=== PATIENT | male | born 1930 | race Caucasian/White ===

== ENCOUNTER → 2017-03-17 | Outpatient (CLI) | payer OTHER ==
[~2017-03-17] MED LIST: CALCTAB5 PO; CHOL100010 PO; CYAN3INJ INJ; FLM4 PO; LSN25 PO; MECL25TA2 PO; METO25TA3 PO; MULT-506 PO; OMEP20TA PO; [UNRECOGNIZED DRUG - CODE] PO
[2017-03-17 13:27] VITALS: BP 106/67; PULSE 69; TEMP 36.6; O2SAT 95
--- NOTE | 2017-03-17 15:21 | Radiation Oncology Follow-Up ---
Radiation Oncology Follow-Up Date of Visit Mar 17, 2017. Reason For Visit Annual follow-up Radiation Completion Date finished 01-28-2012 Diagnosis (1) Carcinoma of prostate Status: Resolved Onset Date: 01/26/2013 Location: right lobe of the prostate Histology Subtype: adenocarcinoma Stage: ll (biopsy stage) Permanent Comment: Gastrointestinal stromal tumor Elevated PSA. Pretreatment PSA 20.8 Clinical stage TIc, biopsy stage T2a Roddy 5+4 09/16/2011 Status post completion of radiation therapy 01/28/2012 received 8040 cGy Last Edited By: Gianna Phillips on Mar 18, 2015 16:02 Interim History He has been doing well from a urinary standpoint. He gave an AUA score of 8. He does continue on the tamsulosin once daily. Last year he gave an AUA score of 7. He completed and expanded prostate cancer index composite for clinical practice and gave a score of 4 of 12 urinary incontinence symptoms. He gave a score of one of 12 urinary irritation symptoms. He gave a score of 4 of 12 bowel symptoms. He gave a score of 8 of 12 and sexual symptoms. He gave a score of one of 12 and hormonal vitality symptoms. His total was 18 of 60. He had a PSA 03/11/2017. In that was 0.05. His PSA on 03/21/2015 was 0.13. He has been having issues with weight loss. He saw his primary care physician last week. He is noted to have a 10 pound weight loss over this past year according to our weights. His physician has recommended a dietitian consultation. He is going to begin receiving nutritional supplements from the [facility]. He has been instructed to take these twice daily. He denies any abdominal pain. He's had no change in bowel habits. He denies any rectal bleeding. Allergies Coded Allergies: No Known Allergies (Verified , 04/24/05) Home Medications Scheduled Calcium (Caltrate), 600 MG PO DAILY Cholecalciferol (Vitamin D), 1,000 INTER.UNIT PO DAILY Cyanocobalamin (Vitamin B-12 Inj), 1,000 MCG INJ UD Imatinib Mesylate (Gleevec), 400 MG PO DAILY Lisinopril (Prinivil *), 2.5 MG PO DAILY Meclizine Hcl (Antivert), 25 MG PO TID PRN Metoprolol Succ (Toprol Xl) (Toprol-Xl), 12.5 MG PO DAILY Multivitamin (Multivitamin), 1 TAB PO DAILY Omeprazole (Omeprazole), 20 MG PO QAM Tamsulosin Hcl (Flomax *), 0.4 MG PO DAILY Review of Systems Gastrointestinal: Symptoms: Nausea GI Comments: occ nausea at meal time , has been happening for last few yrs , loose stool Oral: Symptoms: No Problems Respiratory: Symptoms: WNL Other Respiratory: " getting over a head cold " Urinary: Symptoms: Nocturia Comments: nocturia times 2 - 3 , occ leakage Physical Exam Vital Signs Date Time Temp Pulse Resp B/P (MAP) Pulse Ox O2 Delivery O2 Flow Rate FiO2 03/17/17 13:27 36.6 69 16 106/67 95 Pain: Side: Bilateral Patient Pain Scale: 0 - 10 Initial Pain Intensity: 0.0 Fatigue: Mild General Appearance: no apparent distress, + thin Eyes: normal inspection, EOMI ENT: normal ENT inspection, hearing grossly normal Neck: no adenopathy, thyroid normal Respiratory/Chest: lungs clear, no respiratory distress, no accessory muscle use Cardiovascular: regular rate, rhythm, no gallop, no murmur Abdomen: normal bowel sounds, non tender, soft, + pertinent finding (scar tissue at the site of his right upper quadrant scar.) Extremities: no pedal edema Neurologic/Psychiatric: no motor/sensory deficits, alert, normal mood/affect Skin: warm/dry Assessment & Plan Plan: Continue with annual PSAs. Continue follow-up his primary care physician and Dr. Mccormick. He seen Dr. Mccormick in the next 2 weeks. He is going to start the nutritional supplements as recommended by the [facility] physician and dietitian. He'll continue follow-up with Dr. Malhotra. He continues on Gleevec. A follow-up with our office was not given. He may call if he has any questions or concerns we'll be happy to see him. Total Time In Follow-Up I spent 20 minutes speaking to the patient performing examination. I spent 15 minutes reviewing information and completing this note. Copy To Yimi Mccormick MD; Jonathan Jeter D.O.; Yimi Malhotra M.D.
== END | disposition home or self-care (01) ==
LOC: C.ONC 13:20
PROVIDERS: ATTEND Physician Assistant Medical
DX: Z08 Encounter for follow-up examination after completed treatment for malignant neoplasm (principal); Z92.3 Personal history of irradiation; Z85.46 Personal history of malignant neoplasm of prostate

== ENCOUNTER 2018-06-10 01:20 | Observation (INO) ==
[2018-06-10 01:59] LABS: Basophils # (auto) 0.05 K/uL (0-0.2); Eosinophils # (auto) 0.31 K/uL (0-0.5); Hematocrit (blood only) 35.6 % (42-52); Hemoglobin 11.6 g/dL (14.0-18.0); Immature Granulocytes # (auto) 0.01 K/uL (0.00-0.02); Immature Granulocytes % (auto) 0.2 %; Lymphocytes # (auto) 1.17 K/uL (1.2-3.4); Lymphocytes % (auto) 22.7 %; Mean Corpuscular Hgb Conc 32.6 g/dL (32-36); Mean Corpuscular Volume 103.5 fL (80-100); Mean Platelet Volume 10.4 fL (7.4-10.4); Monocytes # (auto) 0.48 K/uL (0.11-0.59); Monocytes % (auto) 9.3 %; Neutrophils # (auto) 3.13 K/uL (1.4-6.5); Neutrophils % (auto) 60.8 %; Platelet Count 252 K/uL (130-400); RDW Coefficient of Variation 17.7 % (11.5-14.5); RDW Standard Deviation 66.1 fL (36.4-46.3); Red Blood Count 3.44 M/uL (4.7-6.1); White Blood Count 5.15 K/uL (4.8-10.8)
[2018-06-10 02:15] LABS: Albumin Level 3.2 gm/dl (3.4-5.0); BUN Creatinine Ratio 32.2 (10-20); Bilirubin Direct 0.2 mg/dl (0-0.2); Calcium 8.9 mg/dl (8.5-10.1); Creatinine Clr Calc Pharmacy 30.6 ml/min; Est GFR (Non-African American) 62.1; Magnesium 2.5 mg/dl (1.8-2.4); Potassium 4.8 mmol/L (3.5-5.1)
[2018-06-10 02:30] LABS: Bilirubin,Total 0.6 mg/dl (0.2-1); Total Protein 7.3 gm/dl (6.4-8.2); Troponin I 0.15 ng/ml (0-0.045)
[2018-06-10 02:34] LABS: Appearance Urine Clear (Clear); Bilirubin Urine Negative (Negative); Color Urine Yellow; Glucose Urine UA Negative (Negative); Ketones Urine Negative (Negative); Leukocyte Esterase Urine Negative (Negative); Nitrite Urine Negative (Negative); Protein Urine Negative (Negative); Specific Gravity Urine 1.021 (1.000-1.030); Urobilinogen Urine Negative (Negative)
[2018-06-10 03:16] LABS: Partial Thromboplastin Time 27.1 Seconds (21.0-31.0)
[2018-06-10 08:11] LABS: INR 1.1 (0.9-1.1); Prothrombin Time 11.4 Seconds (9.0-12.0)
[2018-06-11 06:31] LABS: Basophils # (auto) 0.04 K/uL (0-0.2); Basophils % (auto) 1.1 %; Eosinophils # (auto) 0.24 K/uL (0-0.5); Eosinophils % (auto) 6.6 %; Hematocrit (blood only) 29.4 % (42-52); Hemoglobin 9.4 g/dL (14.0-18.0); Immature Granulocytes # (auto) 0.01 K/uL (0.00-0.02); Immature Granulocytes % (auto) 0.3 %; Lymphocytes # (auto) 0.97 K/uL (1.2-3.4); Lymphocytes % (auto) 26.6 %; Mean Corpuscular Volume 103.2 fL (80-100); Mean Platelet Volume 10.8 fL (7.4-10.4); Monocytes # (auto) 0.35 K/uL (0.11-0.59); Monocytes % (auto) 9.6 %; Neutrophils # (auto) 2.04 K/uL (1.4-6.5); Neutrophils % (auto) 55.8 %; Platelet Count 228 K/uL (130-400); RDW Coefficient of Variation 17.4 % (11.5-14.5); RDW Standard Deviation 64.8 fL (36.4-46.3); Red Blood Count 2.85 M/uL (4.7-6.1); White Blood Count 3.65 K/uL (4.8-10.8)
[2018-06-11 06:58] LABS: BUN Creatinine Ratio 30.8 (10-20); Calcium 8.3 mg/dl (8.5-10.1); Creatinine Clr Calc Pharmacy 37.3 ml/min; Est GFR (African American) 92.2; Est GFR (Non-African American) 79.5; Magnesium 2.3 mg/dl (1.8-2.4); Potassium 4.3 mmol/L (3.5-5.1)
== END 2018-06-11 14:31 | disposition home health service (06) ==
LOC: ED 01:20 → 2N 01:20

== ENCOUNTER 2018-09-28 11:20 | Inpatient (IN) ==
[2018-09-28] MEDS ORDERED: SODIUM CHLORIDE 0.9% 1000ML 500 ML IV ONE (11:27)
[2018-09-28 11:58] LABS: Basophils # (auto) 0.03 K/uL (0-0.2); Basophils % (auto) 0.2 %; Hematocrit (blood only) 35.3 % (42-52); Immature Granulocytes # (auto) 0.05 K/uL (0.00-0.02); Immature Granulocytes % (auto) 0.3 %; Lymphocytes # (auto) 0.62 K/uL (1.2-3.4); Lymphocytes % (auto) 3.8 %; Mean Corpuscular Volume 100.6 fL (80-100); Mean Platelet Volume 10.5 fL (7.4-10.4); Monocytes # (auto) 0.67 K/uL (0.11-0.59); Monocytes % (auto) 4.1 %; Neutrophils # (auto) 14.81 K/uL (1.4-6.5); Neutrophils % (auto) 91.6 %; Nucleated RBC # (auto) 0.03 K/uL (0-0); Nucleated RBC % (auto) 0.2 %; Platelet Count 278 K/uL (130-400); RDW Coefficient of Variation 16.5 % (11.5-14.5); RDW Standard Deviation 58.3 fL (36.4-46.3); Red Blood Count 3.51 M/uL (4.7-6.1); White Blood Count 16.18 K/uL (4.8-10.8)
--- NOTE | 2018-09-28 12:02 | XRay Report ---
XR chest 1V portable CLINICAL HISTORY: Sepsis COMPARISON STUDY: 06/10/2018 FINDINGS: The heart is normal in size. Underlying pulmonary emphysema is suspected. There are right p erihilar airspace opacities, which may represent a pneumonitis. Clinical and radiographic follow-up i s recommended. There is no overt failure. There are no pleural effusions.[ IMPRESSION: Interval development of right perihilar airspace opacities suspicious for a pneumonitis. Clinical and radiographic follow-up is recommended. Electronically signed by: Jamie Martel M.D. 09/28/2018 12:01 PM
[2018-09-28 12:10] LABS: INR 1.2 (0.9-1.1); Partial Thromboplastin Ratio 0.9; Partial Thromboplastin Time 24.7 Seconds (21.0-31.0); Prothrombin Time 12.4 Seconds (9.0-12.0)
[2018-09-28 12:12] LABS: Influenza A virus by PCR Neg for Influ A (Neg); Influenza B virus by PCR Neg for Influ B (Neg)
[2018-09-28 12:17] LABS: Albumin Level 3.6 gm/dl (3.4-5.0); BUN Creatinine Ratio 20.9 (10-20); Calcium 9.1 mg/dl (8.5-10.1); Creatinine Clr Calc Pharmacy 23.4 ml/min; Est GFR (African American) 56.5; Est GFR (Non-African American) 48.7; Magnesium 2.2 mg/dl (1.8-2.4); Potassium 4.3 mmol/L (3.5-5.1)
[2018-09-28 12:26] LABS: Albumin Globulin Ratio 0.9 (0.9-2); C Reactive Protein 0.35 mg/dl (0-0.29); Total Protein 7.6 gm/dl (6.4-8.2); Troponin I 0.522 ng/ml (0-0.045)
[2018-09-28] MEDS ORDERED: SODIUM CHLORIDE 0.9% 1000ML 1,000 ML IV ONE (12:59)
[2018-09-28] MEDS ORDERED: PIPERACILL/TAZOBAC CONSULT ACTIVE PRN (12:59)
[2018-09-28] MEDS ORDERED: PIPERACILLIN/TAZOBACTAM 3.375 GM/115 ML BAG IV STA (12:59)
--- NOTE | 2018-09-28 14:59 | Emergency Department Note ---
Entered by Christine Goodwin acting as a scribe for Aaron Johnston DO History of Present Illness General Chief complaint: Fever Time Seen by Provider: 09/28/18 11:23 Source: patient and other (nursing staff) Limitations: altered mental status (dementia) History of Present Illness Provider complaint: shaking Onset (ago): hour(s) (today) Location: left and right Quality: + other (shaking) Associated symptoms: + other (abdominal pain, runny nose) The patient is an 88 year old male who presents to the Emergency Department with complaints of shaking today. He states that he has had an occasional runny nose and intermittent abdominal pain. Limited HPI secondary to dementia. Per nursing staff, the patient's called as the patient was shaking. Per nursing staff, the patient has dementia. 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 Chronic anemia (Chronic) Pernicious anemia (Chronic) Right acoustic neuroma (Chronic) BPH (benign prostatic hyperplasia) (Chronic) 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 Physical Exam Vital Signs Vital Signs - 24 hr 09/28/18 11:30 09/28/18 11:35 09/28/18 11:36 Temperature Temperature Source Sepsis Recent Fever Within 48 Hours Sepsis New/Unexplained Change in Mental Status Sepsis Action Taken by Nursing Pulse Rate 101 H 99 H Pulse Rate [Right Finger] Pulse Rate from SpO2 Sensor 101 H 98 H Respiratory Rate 33 H 33 H Respiratory Effort / Characteristics Respiratory Depth Respiratory Pattern Blood Pressure 142/75 H Blood Pressure [Right Arm] Blood Pressure Mean 97 Blood Pressure Mean [Right Arm] Blood Pressure Position [Right Arm] Pulse Oximetry 95 95 95 Oxygen Delivery Method Room Air 09/28/18 11:39 09/28/18 12:00 09/28/18 12:01 Temperature 36.8 C Temperature Source Oral Sepsis Recent Fever Within 48 Hours No Sepsis New/Unexplained Change in Mental Status No Sepsis Action Taken by Nursing No Action Required Pulse Rate 119 H 92 H 93 H Pulse Rate [Right Finger] Pulse Rate from SpO2 Sensor 93 H 84 Respiratory Rate 17 28 H 26 H Respiratory Effort / Characteristics Non-Labored Spontaneous Respiratory Depth Normal Respiratory Pattern Regular Blood Pressure 139/66 122/85 Blood Pressure [Right Arm] Blood Pressure Mean 90 97 Blood Pressure Mean [Right Arm] Blood Pressure Position [Right Arm] Pulse Oximetry 95 93 Oxygen Delivery Method Room Air 09/28/18 12:02 09/28/18 12:30 09/28/18 13:00 Temperature Temperature Source Sepsis Recent Fever Within 48 Hours Sepsis New/Unexplained Change in Mental Status Sepsis Action Taken by Nursing Pulse Rate 96 H 88 87 Pulse Rate [Right Finger] Pulse Rate from SpO2 Sensor 79 89 87 Respiratory Rate 25 H 23 27 H Respiratory Effort / Characteristics Respiratory Depth Respiratory Pattern Blood Pressure 137/74 126/67 Blood Pressure [Right Arm] Blood Pressure Mean 95 86 Blood Pressure Mean [Right Arm] Blood Pressure Position [Right Arm] Pulse Oximetry 90 96 94 Oxygen Delivery Method 09/28/18 13:30 09/28/18 14:00 09/28/18 14:30 Temperature Temperature Source Sepsis Recent Fever Within 48 Hours Sepsis New/Unexplained Change in Mental Status Sepsis Action Taken by Nursing Pulse Rate 91 H 74 80 Pulse Rate [Right Finger] Pulse Rate from SpO2 Sensor 84 75 80 Respiratory Rate 26 H 27 H 28 H Respiratory Effort / Characteristics Respiratory Depth Respiratory Pattern Blood Pressure 146/76 H 128/67 113/60 Blood Pressure [Right Arm] Blood Pressure Mean 99 87 77 Blood Pressure Mean [Right Arm] Blood Pressure Position [Right Arm] Pulse Oximetry 95 94 93 Oxygen Delivery Method 09/28/18 15:00 09/28/18 15:30 09/28/18 16:00 Temperature Temperature Source Sepsis Recent Fever Within 48 Hours Sepsis New/Unexplained Change in Mental Status Sepsis Action Taken by Nursing Pulse Rate 74 74 70 Pulse Rate [Right Finger] Pulse Rate from SpO2 Sensor 75 74 70 Respiratory Rate 31 H 21 21 Respiratory Effort / Characteristics Respiratory Depth Respiratory Pattern Blood Pressure 121/59 L 106/57 L 107/55 L Blood Pressure [Right Arm] Blood Pressure Mean 79 73 72 Blood Pressure Mean [Right Arm] Blood Pressure Position [Right Arm] Pulse Oximetry 95 94 94 Oxygen Delivery Method 09/28/18 16:14 Temperature 36.6 C Temperature Source Oral Sepsis Recent Fever Within 48 Hours Sepsis New/Unexplained Change in Mental Status Sepsis Action Taken by Nursing Pulse Rate Pulse Rate [Right Finger] 70 Pulse Rate from SpO2 Sensor Respiratory Rate 18 Respiratory Effort / Characteristics Respiratory Depth Respiratory Pattern Blood Pressure Blood Pressure [Right Arm] 117/59 L Blood Pressure Mean Blood Pressure Mean [Right Arm] 78 Blood Pressure Position [Right Arm] Lying Pulse Oximetry 94 Oxygen Delivery Method Room Air GENERAL: Patient is awake, alert, and in no acute distress. Patient is resting comfortably and showing no signs of anxiety. Very cachectic appearing. EYES: The conjunctivae are clear. The pupils are round and reactive. EARS, NOSE, MOUTH AND THROAT: The nose is without any evidence of any deformity. Mucous membranes are dry. Tongue is midline NECK: The neck is nontender and supple. RESPIRATORY: Diminished in the left base. Rales noted in the right lung field. Poor air movement. CARDIOVASCULAR: Regular rate and rhythm noted. There no murmurs rubs or gallops normal S1 normal S2 GASTROINTESTINAL: The abdomen is soft. Bowel sounds are present in all quadran ts. Abdomen is nontender. MUSCULOSKELETAL/EXTREMITIES: There is no evidence of gross deformity. Full range of motion is noted in the hips and shoulders. SKIN: Cool and dry. No edema. NEUROLOGIC: Patient is awake alert and oriented to person, place, and situation. [Strength is symmetric. Patellar reflexes are 2+ bilaterally.] Course 1124: The patient was evaluated in room B9. A history and physical were performed. 1301: I updated the patient. He verbalized agreement and understanding of the treatment plan. 1324: I discussed the patient's case with Nellie Solo PA-C, admitting to Dr. Jimenez, who will evaluate the patient for further management. Consultations Consultation #1: Nellie Child Time: 13:24 Administered Medications Discontinued Medications Sodium Chloride (Nss 1000ml) 500 mls @ 999 mls/hr IV .Q31M ONE Stop: 09/28/18 11:57 Last Infusion: 09/28/18 12:21 Dose: 0 mls/hr Documented by: [id number] Admin: 09/28/18 11:50 Dose: 999 mls/hr Documented by: [id number] Piperacillin Sod/Tazobactam Sod (Zosyn) 3.375 gm in 115 mls @ 230 mls/hr IV NOW STA Stop: 09/28/18 13:28 Last Infusion: 09/28/18 13:51 Dose: 0 mls/hr Documented by: [id number] Admin: 09/28/18 13:21 Dose: 230 mls/hr Documented by: [id number] Sodium Chloride (Nss 1000ml) 1,000 mls @ 999 mls/hr IV .Q1H1M ONE Stop: 09/28/18 13:59 Last Infusion: 09/28/18 14:24 Dose: 0 mls/hr Documented by: [id number] Admin: 09/28/18 13:08 Dose: 999 mls/hr Documented by: [id number] Medical Decision Making Differential Diagnosis Differential diagnosis Etiologies such as sepsis, UTI, pneumonia, bacteremia, metabolic process, electrolyte abnormalities, cardiac sources, intracerebral event, intra-abdominal process, toxicological process, neurologic process, as well as others were entertained. Medical Records Attestation: I reviewed the patient's medical records. Home Medications Current Medication List: was personally reviewed by me Laboratory Data Attestation: I reviewed the patient's lab results. Result diagrams: 09/28/18 11:36 09/28/18 11:36 Lab Results 09/28/18 09/28/18 09/28/18 Range/Units 11:25 11:36 11:36 WBC 16.18 H (4.8-10.8) K/uL RBC 3.51 L (4.7-6.1) M/uL Hgb 12.0 L (14.0-18.0) g/dL Hct 35.3 L (42-52) % MCV 100.6 H (80-100) fL MCH 34.2 H (25-34) pg MCHC 34.0 (32-36) g/dL RDW Std Deviation 58.3 H (36.4-46.3) fL RDW Coeff of Jose 16.5 H (11.5-14.5) % Plt Count 278 (130-400) K/uL MPV 10.5 H (7.4-10.4) fL Immature Gran % (Auto) 0.3 % Neut % (Auto) 91.6 % Lymph % (Auto) 3.8 % [place] % (Auto) 4.1 % Eos % (Auto) 0.0 % Baso % (Auto) 0.2 % Immature Gran # (Auto) 0.05 H (0.00-0.02) K/uL Neut # (Auto) 14.81 H (1.4-6.5) K/uL Lymph # (Auto) 0.62 L (1.2-3.4) K/uL [place] # (Auto) 0.67 H (0.11-0.59) K/uL Eos # (Auto) 0.00 (0-0.5) K/uL Baso # (Auto) 0.03 (0-0.2) K/uL Absolute Nucleated RBC 0.03 H (0-0) K/uL Nucleated RBC % (auto) 0.2 % ESR (0-14) mm/hr PT (9.0-12.0) Seconds INR (0.9-1.1) APTT (21.0-31.0) Seconds PTT Ratio Sodium (136-145) mmol/L Potassium (3.5-5.1) mmol/L Chloride (98-107) mmol/L Carbon Dioxide (21-32) mmol/L Anion Gap (3-11) BUN (7-18) mg/dl Creatinine (0.6-1.4) mg/dl Est Cr Clr Drug Dosing ml/min Est GFR ( Amer) Est GFR (Non-Af Amer) BUN/Creatinine Ratio (10-20) Glucose (70-99) mg/dl Lactate (0.4-2.0) mmol/L Calcium (8.5-10.1) mg/dl Magnesium (1.8-2.4) mg/dl Total Bilirubin (0.2-1) mg/dl AST (15-37) U/L ALT (12-78) U/L Alkaline Phosphatase (45-117) U/L Troponin I (0-0.045) ng/ml C-Reactive Protein (0-0.29) mg/dl Total Protein (6.4-8.2) gm/dl Albumin (3.4-5.0) gm/dl Globulin (2.5-4.0) gm/dl Albumin/Globulin Ratio (0.9-2) Lipase (73-393) U/L Procalcitonin 1.11 H (0-0.5) ng/ml Urine Color Urine Appearance (Clear) Urine pH (4.5-7.5) Ur Specific [place] (1.000-1.030) Urine Protein (Negative) Urine Glucose (UA) (Negative) Urine Ketones (Negative) Urine Blood (Negative) Urine Nitrite (Negative) Urine Bilirubin (Negative) Urine Urobilinogen (Negative) Ur Leukocyte Esterase (Negative) Urine WBC (Auto) (0-5) /hpf Urine RBC (Auto) (0-4) /hpf U Hyaline Cast (Auto) (0-5) /lpf U Epithel Cells (Auto) (0-5) /lpf Urine Bacteria (Auto) (Negative) Influenza Type A (PCR) Neg for Influ A (Neg) Influenza Type B (PCR) Neg for Influ B (Neg) 09/28/18 09/28/18 09/28/18 Range/Units 11:36 11:36 11:36 WBC (4.8-10.8) K/uL RBC (4.7-6.1) M/uL Hgb (14.0-18.0) g/dL Hct (42-52) % MCV (80-100) fL MCH (25-34) pg MCHC (32-36) g/dL RDW Std Deviation (36.4-46.3) fL RDW Coeff of Jose (11.5-14.5) % Plt Count (130-400) K/uL MPV (7.4-10.4) fL Immature Gran % (Auto) % Neut % (Auto) % Lymph % (Auto) % [place] % (Auto) % Eos % (Auto) % Baso % (Auto) % Immature Gran # (Auto) (0.00-0.02) K/uL Neut # (Auto) (1.4-6.5) K/uL Lymph # (Auto) (1.2-3.4) K/uL [place] # (Auto) (0.11-0.59) K/uL Eos # (Auto) (0-0.5) K/uL Baso # (Auto) (0-0.2) K/uL Absolute Nucleated RBC (0-0) K/uL Nucleated RBC % (auto) % ESR 24 H (0-14) mm/hr PT 12.4 H (9.0-12.0) Seconds INR 1.2 H (0.9-1.1) APTT 24.7 (21.0-31.0) Seconds PTT Ratio 0.9 Sodium 138 (136-145) mmol/L Potassium 4.3 (3.5-5.1) mmol/L Chloride 104 (98-107) mmol/L Carbon Dioxide 31 (21-32) mmol/L Anion Gap 3.0 (3-11) BUN 27 H (7-18) mg/dl Creatinine 1.30 (0.6-1.4) mg/dl Est Cr Clr Drug Dosing 23.4 ml/min Est GFR ( Amer) 56.5 Est GFR (Non-Af Amer) 48.7 BUN/Creatinine Ratio 20.9 H (10-20) Glucose 120 H (70-99) mg/dl Lactate (0.4-2.0) mmol/L Calcium 9.1 (8.5-10.1) mg/dl Magnesium 2.2 (1.8-2.4) mg/dl Total Bilirubin 1.0 (0.2-1) mg/dl AST 30 (15-37) U/L ALT 17 (12-78) U/L Alkaline Phosphatase 73 (45-117) U/L Troponin I 0.522 H* (0-0.045) ng/ml C-Reactive Protein 0.35 H (0-0.29) mg/dl Total Protein 7.6 (6.4-8.2) gm/dl Albumin 3.6 (3.4-5.0) gm/dl Globulin 4.0 (2.5-4.0) gm/dl Albumin/Globulin Ratio 0.9 (0.9-2) Lipase 58 L (73-393) U/L Procalcitonin (0-0.5) ng/ml Urine Color Urine Appearance (Clear) Urine pH (4.5-7.5) Ur Specific [place] (1.000-1.030) Urine Protein (Negative) Urine Glucose (UA) (Negative) Urine Ketones (Negative) Urine Blood (Negative) Urine Nitrite (Negative) Urine Bilirubin (Negative) Urine Urobilinogen (Negative) Ur Leukocyte Esterase (Negative) Urine WBC (Auto) (0-5) /hpf Urine RBC (Auto) (0-4) /hpf U Hyaline Cast (Auto) (0-5) /lpf U Epithel Cells (Auto) (0-5) /lpf Urine Bacteria (Auto) (Negative) Influenza Type A (PCR) (Neg) Influenza Type B (PCR) (Neg) 09/28/18 09/28/18 09/28/18 Range/Units 11:50 15:34 15:34 WBC (4.8-10.8) K/uL RBC (4.7-6.1) M/uL Hgb (14.0-18.0) g/dL Hct (42-52) % MCV (80-100) fL MCH (25-34) pg MCHC (32-36) g/dL RDW Std Deviation (36.4-46.3) fL RDW Coeff of Jose (11.5-14.5) % Plt Count (130-400) K/uL MPV (7.4-10.4) fL Immature Gran % (Auto) % Neut % (Auto) % Lymph % (Auto) % [place] % (Auto) % Eos % (Auto) % Baso % (Auto) % Immature Gran # (Auto) (0.00-0.02) K/uL Neut # (Auto) (1.4-6.5) K/uL Lymph # (Auto) (1.2-3.4) K/uL [place] # (Auto) (0.11-0.59) K/uL Eos # (Auto) (0-0.5) K/uL Baso # (Auto) (0-0.2) K/uL Absolute Nucleated RBC (0-0) K/uL Nucleated RBC % (auto) % ESR (0-14) mm/hr PT (9.0-12.0) Seconds INR (0.9-1.1) APTT (21.0-31.0) Seconds PTT Ratio Sodium (136-145) mmol/L Potassium (3.5-5.1) mmol/L Chloride (98-107) mmol/L Carbon Dioxide (21-32) mmol/L Anion Gap (3-11) BUN (7-18) mg/dl Creatinine (0.6-1.4) mg/dl Est Cr Clr Drug Dosing ml/min Est GFR ( Amer) Est GFR (Non-Af Amer) BUN/Creatinine Ratio (10-20) Glucose (70-99) mg/dl Lactate 3.3 H* 1.9 (0.4-2.0) mmol/L Calcium (8.5-10.1) mg/dl Magnesium (1.8-2.4) mg/dl Total Bilirubin (0.2-1) mg/dl AST (15-37) U/L ALT (12-78) U/L Alkaline Phosphatase (45-117) U/L Troponin I 7.720 H* (0-0.045) ng/ml C-Reactive Protein (0-0.29) mg/dl Total Protein (6.4-8.2) gm/dl Albumin (3.4-5.0) gm/dl Globulin (2.5-4.0) gm/dl Albumin/Globulin Ratio (0.9-2) Lipase (73-393) U/L Procalcitonin (0-0.5) ng/ml Urine Color Urine Appearance (Clear) Urine pH (4.5-7.5) Ur Specific [place] (1.000-1.030) Urine Protein (Negative) Urine Glucose (UA) (Negative) Urine Ketones (Negative) Urine Blood (Negative) Urine Nitrite (Negative) Urine Bilirubin (Negative) Urine Urobilinogen (Negative) Ur Leukocyte Esterase (Negative) Urine WBC (Auto) (0-5) /hpf Urine RBC (Auto) (0-4) /hpf U Hyaline Cast (Auto) (0-5) /lpf U Epithel Cells (Auto) (0-5) /lpf Urine Bacteria (Auto) (Negative) Influenza Type A (PCR) (Neg) Influenza Type B (PCR) (Neg) 09/28/18 Range/Units Unknown WBC (4.8-10.8) K/uL RBC (4.7-6.1) M/uL Hgb (14.0-18.0) g/dL Hct (42-52) % MCV (80-100) fL MCH (25-34) pg MCHC (32-36) g/dL RDW Std Deviation (36.4-46.3) fL RDW Coeff of Jose (11.5-14.5) % Plt Count (130-400) K/uL MPV (7.4-10.4) fL Immature Gran % (Auto) % Neut % (Auto) % Lymph % (Auto) % [place] % (Auto) % Eos % (Auto) % Baso % (Auto) % Immature Gran # (Auto) (0.00-0.02) K/uL Neut # (Auto) (1.4-6.5) K/uL Lymph # (Auto) (1.2-3.4) K/uL [place] # (Auto) (0.11-0.59) K/uL Eos # (Auto) (0-0.5) K/uL Baso # (Auto) (0-0.2) K/uL Absolute Nucleated RBC (0-0) K/uL Nucleated RBC % (auto) % ESR (0-14) mm/hr PT (9.0-12.0) Seconds INR (0.9-1.1) APTT (21.0-31.0) Seconds PTT Ratio Sodium (136-145) mmol/L Potassium (3.5-5.1) mmol/L Chloride (98-107) mmol/L Carbon Dioxide (21-32) mmol/L Anion Gap (3-11) BUN (7-18) mg/dl Creatinine (0.6-1.4) mg/dl Est Cr Clr Drug Dosing ml/min Est GFR ( Amer) Est GFR (Non-Af Amer) BUN/Creatinine Ratio (10-20) Glucose (70-99) mg/dl Lactate (0.4-2.0) mmol/L Calcium (8.5-10.1) mg/dl Magnesium (1.8-2.4) mg/dl Total Bilirubin (0.2-1) mg/dl AST (15-37) U/L ALT (12-78) U/L Alkaline Phosphatase (45-117) U/L Troponin I (0-0.045) ng/ml C-Reactive Protein (0-0.29) mg/dl Total Protein (6.4-8.2) gm/dl Albumin (3.4-5.0) gm/dl Globulin (2.5-4.0) gm/dl Albumin/Globulin Ratio (0.9-2) Lipase (73-393) U/L Procalcitonin (0-0.5) ng/ml Urine Color Yellow Urine Appearance Clear (Clear) Urine pH 6.5 (4.5-7.5) Ur Specific [place] 1.019 (1.000-1.030) Urine Protein Trace H (Negative) Urine Glucose (UA) Negative (Negative) Urine Ketones Trace H (Negative) Urine Blood Negative (Negative) Urine Nitrite Negative (Negative) Urine Bilirubin Negative (Negative) Urine Urobilinogen Negative (Negative) Ur Leukocyte Esterase Negative (Negative) Urine WBC (Auto) 1-5 (0-5) /hpf Urine RBC (Auto) 5-10 H (0-4) /hpf U Hyaline Cast (Auto) 1-5 (0-5) /lpf U Epithel Cells (Auto) 5-10 H (0-5) /lpf Urine Bacteria (Auto) Negative (Negative) Influenza Type A (PCR) (Neg) Influenza Type B (PCR) (Neg) Imaging Data Radiologist's Impression: Radiology results as stated below per my review and the radiologist's interpretation: XR chest 1V portable CLINICAL HISTORY: Sepsis COMPARISON STUDY: 06/10/2018 FINDINGS: The heart is normal in size. Underlying pulmonary emphysema is suspected. There are right perihilar airspace opacities, which may represent a pneumonitis. Clinical and radiographic follow-up is recommended. There is no overt failure. There are no pleural effusions.[ IMPRESSION: Interval development of right perihilar airspace opacities jurado spicious for a pneumonitis. Clinical and radiographic follow-up is recommended. Electronically signed by: Jamie Martel M.D. 09/28/2018 12:01 PM ECG Data Attestation: I personally reviewed and interpreted this ECG as follows: Indication: weakness Rate (beats per minute): 101 Rhythm: sinus tachycardia Findings: + 1st degree AV block and + RBBB; no PVC Comparison ECG Date: from (06/11/18) Change: no significant change Blood Pressure Blood Pressure Findings: Normal blood pressure MDM Narrative The patient is an 80-year-old male who presented to the emergency department for generalized weakness. The patient also had a reported fever prior to arrival. His physical exam appear to be consistent with some respiratory difficulty. He had abnormal lung sounds. Chest x-ray appears to be consistent with pneumonia. The patient's white blood cell count is elevated as well. The patient is very cachectic appearing. His general health does not appear to be well at all. He was treated with IV fluids as well as IV antibiotics. He was reevaluated multiple times. I discussed the patient's laboratory and radiographic studies w ith him and his family members. Given his findings I also discussed this case with the on-call [facility] hospitalist group. They have agreed to evaluate the patient in the emergency department for further management and disposition. Impression & Plan PNA (pneumonia), Elevated troponin, Sepsis, Acidosis, lactic Discharge Plan Visit Data *Final* Discharge Date/Time: 09/28/18 16:04 Chief Complaint: Fever ED Provider: Aaron Johnston Discharge Problem: PNA (pneumonia), Elevated troponin, Sepsis, Acidosis, lactic Patient Disposition: Admitted As Inpatient Discharge Instructions Interventions: ED Discharge Assessment Last Done: 09/28/18 16:04 The scribe's documentation has been prepared under my direction and personally reviewed by me in its entirety. I confirm that the note above accurately refl ects all work, treatment, procedures, and medical decision making performed by me.
--- NOTE | 2018-09-28 15:04 | History & Physical Report ---
Date of Service September 28, 2018 Assessment & Plan (1) Pneumonia: (2) Sepsis: -Admit to telemetry -Patient presenting from home with reports of shaking chills and mild cough -In ED, CXR showing right perihilar opacities consistent with pneumonitis -WBC 16K, tachycardic, initial lactate 3.3; BP stable, afebrile -HR improved after IVF, repeat lactate 1.9 -likely aspiration pneumonitis given history of difficulty chewing/swallowing -s/p Zosyn in the ED, will continue with; check MRSA nasal swab and add Vanco if positive -follow blood cultures -aspirations precautions, speech eval (3) NSTEMI (non-ST elevated myocardial infarction): (4) CAD (coronary artery disease): -remote history of anterior NV in 1993 -initial troponin 0.522 -> 7.720 -no chest pain, EKG demonstrates unchanged bifasicular block -aspirin was stopped previously due to remote history of GIST tumor s/p resection, beta fanny and ACEi discontinued due to hypotension -will start IV heparin -discussed with GI (Marleny MURPYH) regarding use of IV heparin and aspirin - no contraindications at this time given that GIST and resection was in the remote past -resting echo -NSTEMI vs. type II NV from sepsis vs. Takotsubo -cardio consult, case discussed with Dr. Weber (5) Chronic anemia: -pernicious anemia with anemia of chronic diease -receives procrit and Vit B12 injections as an outpatient -baseline hgb ~ 11.0 -hgb 12.0 today, continue to monitor (6) DVT prophylaxis: -on IV heparin as above History of Present Illness Chief Complaint: Chills, cough Primary Care Provider: Ramiro Lewis MD 88-year-old male who presents the ED with reports of chills and cough. Patient reports he woke up around 9:00 this morning and had shaking chills and could not get warm. He also reports a mild wet cough. He reports he was unable to cough up any sputum. Patient was then brought to the ED for further evaluation. Patient reports he was feeling his usual state of health yesterday. Patient does have a chronically poor appetite and has been struggling with weight loss. He also has trouble chewing his food at times and swallowing difficulties. Patient denies chest pain and shortness of breath. He reports lightheadedness and dizziness with standing which is been a chronic issue. No syncopal events. He reports associated nausea this morning however denies any vomiting. No abdominal pain or diarrhea. He denies any urinary symptoms. In the ED, CXR showing right perihilar opacities consistent with pneumonitis. WBC 16 K, lactate 3.3, initially tachycardic which improved with IVF. Troponin mildly elevated at 0.522, EKG without acute ST changes. Patient was also given IV Zosyn. 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 Chronic anemia (Chronic) Pernicious anemia (Chronic) Right acoustic neuroma (Chronic) BPH (benign prostatic hyperplasia) (Chronic) 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) CAD (coronary artery disease) (Chronic) Dyslipidemia (Chronic) HTN (hypertension) (Chronic) Family History Brother Lung cancer Brother Colorectal cancer Father Hypertension Social History Preferred Language: Guyanese Communication Ability: Impaired Communication Ability Comment: Cam davila, h/a is not here-family will bring Access Specialist Required: No Beliefs That Will Affect Care: None Current Living Situation: Spouse Feels Safe at Home: Yes Safety Concerns: Feels Safe At This Time Smoking Status: Never smoker Do You Dip or Chew Tobacco: No Hx Alcohol Use: No Hx Substance Use: No Review of Systems Review of Systems: ROS per HPI, all other systems reviewed and negative Physical Exam Constitutional: + thin, + cachectic and + frail appearing; no acute distress Vitals as above Eyes: PERRL, conjunctivae normal, anicteric sclerae ENMT: external ear and nose normal, oropharynx normal Ears: + hearing impairment Respiratory: normal respiratory effort; no respiratory distress Auscultation: + diminished lung sounds and + crackles (Right mid to lower lung clark) Cardiovascular: Rate/Rhythm: regular rate and regular rhythm Vessels: normal peripheral pulses Extremities: no edema Gastrointestinal (Abdomen): normal bowel sounds, soft, nontender, no hepatosplenomegaly Musculoskeletal: no cyanosis or clubbing, extremities motor strength 5/5 Head/Neck/Chest: + head abnormal to inspection (Bitemporal wasting) Skin: no rashes, warm and dry Neurologic: PERRL, EOMI, accommodation nl, no face palsy, no dysarthria Psychiatric: Orientation: alert, oriented to person and oriented to place; + not oriented to time (States year is 2017, incorrect day of the week) Affect: euthymic affect Insight: + limited insight Results & Data Vital Signs (Past 12 Hours) Vital Signs Temp Pulse Resp BP Pulse Ox 09/28/18 14:00 74 27 H 128/67 94 09/28/18 13:30 91 H 26 H 146/76 H 95 09/28/18 13:00 87 27 H 126/67 94 09/28/18 12:30 88 23 137/74 96 09/28/18 12:02 96 H 25 H 90 09/28/18 12:01 93 H 26 H 122/85 93 09/28/18 12:00 92 H 28 H 09/28/18 11:39 36.8 C 119 H 17 139/66 95 09/28/18 11:36 95 09/28/18 11:35 99 H 33 H 95 09/28/18 11:30 101 H 33 H 142/75 H 95 Laboratory Results Laboratory Last Values WBC 16.18 K/uL (4.8-10.8) H 09/28/18 11:36 RBC 3.51 M/uL (4.7-6.1) L 09/28/18 11:36 Hgb 12.0 g/dL (14.0-18.0) L 09/28/18 11:36 Hct 35.3 % (42-52) L 09/28/18 11:36 MCV 100.6 fL (80-100) H 09/28/18 11:36 MCH 34.2 pg (25-34) H 09/28/18 11:36 MCHC 34.0 g/dL (32-36) 09/28/18 11:36 RDW Std Deviation 58.3 fL (36.4-46.3) H 09/28/18 11:36 RDW Coeff of Jose 16.5 % (11.5-14.5) H 09/28/18 11:36 Plt Count 278 K/uL (130-400) 09/28/18 11:36 MPV 10.5 fL (7.4-10.4) H 09/28/18 11:36 Immature Gran % (Auto) 0.3 % 09/28/18 11:36 Neut % (Auto) 91.6 % 09/28/18 11:36 Lymph % (Auto) 3.8 % 09/28/18 11:36 Beadle % (Auto) 4.1 % 09/28/18 11:36 Eos % (Auto) 0.0 % 09/28/18 11:36 Baso % (Auto) 0.2 % 09/28/18 11:36 Immature Gran # (Auto) 0.05 K/uL (0.00-0.02) H 09/28/18 11:36 Neut # (Auto) 14.81 K/uL (1.4-6.5) H 09/28/18 11:36 Lymph # (Auto) 0.62 K/uL (1.2-3.4) L 09/28/18 11:36 Beadle # (Auto) 0.67 K/uL (0.11-0.59) H 09/28/18 11:36 Eos # (Auto) 0.00 K/uL (0-0.5) 09/28/18 11:36 Baso # (Auto) 0.03 K/uL (0-0.2) 09/28/18 11:36 Absolute Nucleated RBC 0.03 K/uL (0-0) H 09/28/18 11:36 Nucleated RBC % (auto) 0.2 % 09/28/18 11:36 ESR 24 mm/hr (0-14) H 09/28/18 11:36 PT 12.4 Seconds (9.0-12.0) H 09/28/18 11:36 INR 1.2 (0.9-1.1) H 09/28/18 11:36 APTT 24.7 Seconds (21.0-31.0) 09/28/18 11:36 PTT Ratio 0.9 09/28/18 11:36 Sodium 138 mmol/L (136-145) 09/28/18 11:36 Potassium 4.3 mmol/L (3.5-5.1) 09/28/18 11:36 Chloride 104 mmol/L (98-107) 09/28/18 11:36 Carbon Dioxide 31 mmol/L (21-32) 09/28/18 11:36 Anion Gap 3.0 (3-11) 09/28/18 11:36 BUN 27 mg/dl (7-18) H 09/28/18 11:36 Creatinine 1.30 mg/dl (0.6-1.4) 09/28/18 11:36 Est Cr Clr Drug Dosing 23.4 ml/min 09/28/18 11:36 Est GFR ( Amer) 56.5 09/28/18 11:36 Est GFR (Non-Af Amer) 48.7 09/28/18 11:36 BUN/Creatinine Ratio 20.9 (10-20) H 09/28/18 11:36 Glucose 120 mg/dl (70-99) H 09/28/18 11:36 Lactate 3.3 mmol/L (0.4-2.0) H* 09/28/18 11:50 Calcium 9.1 mg/dl (8.5-10.1) 09/28/18 11:36 Magnesium 2.2 mg/dl (1.8-2.4) 09/28/18 11:36 Total Bilirubin 1.0 mg/dl (0.2-1) 09/28/18 11:36 AST 30 U/L (15-37) 09/28/18 11:36 ALT 17 U/L (12-78) 09/28/18 11:36 Alkaline Phosphatase 73 U/L (45-117) 09/28/18 11:36 Troponin I 0.522 ng/ml (0-0.045) H* 09/28/18 11:36 C-Reactive Protein 0.35 mg/dl (0-0.29) H 09/28/18 11:36 Total Protein 7.6 gm/dl (6.4-8.2) 09/28/18 11:36 Albumin 3.6 gm/dl (3.4-5.0) 09/28/18 11:36 Globulin 4.0 gm/dl (2.5-4.0) 09/28/18 11:36 Albumin/Globulin Ratio 0.9 (0.9-2) 09/28/18 11:36 Lipase 58 U/L (73-393) L 09/28/18 11:36 Procalcitonin 1.11 ng/ml (0-0.5) H 09/28/18 11:36 Influenza Type A (PCR) Neg for Influ A (Neg) 09/28/18 11:25 Influenza Type B (PCR) Neg for Influ B (Neg) 09/28/18 11:25 Diagnostic Findings CXR IMPRESSION: Interval development of right perihilar airspace opacities suspicious for a pneumonitis. Clinical and radiographic follow-up is recommended. Code Status & VTE Plan Code Status Patient is a DNR as per my discussion with patient and family at the bedside as well as POLST form. VTE Prophylaxis Plan VTE Prophylaxis will be ordered: Yes Supervising Physician Co-Signing Physician Notes Care coordinated with Dori MURPHY. Agree with above note. Patient seen and examined. Please refer to her notes for full details. Vital signs reviewed. Physical exam: General exam: Alert and oriented. Not in acute distress. CVS: S1 and S2 heard, regular rate and rhythm, no murmurs. RS: Clear to auscultation, no wheezing or crackles. ABD: Soft, bowel sounds present, nontender, no distention. STAFFING RN: Nonfocal. EXT: No edema, no erythema. Labs: Reviewed. Assessment and plan: 88M with hx of Malignant gastrointestinal tumor s/p radical gastrectomy and LN dissection in 1996, prostrate cancer diagnosed in 2009(1992?)(brachytherapy in 2 012) recent PET scan in 04/2018 was unremarkable and was on Gleevec therapy since 2001 and was stopped by heme/onco in 04/2018.Hx of NV but no longer on aspirin, b fanny stoped because of low blood pressures, poor appetite and losing weight progressively currently weights only 92pounds was brought in because he was having chills and cough.Found to have leukocytosis, elevated lactic acid and RT lower lobe pneumonia. Pneumonia sepsis with leukocytosis, tachypnea on presentation, elevated lactic acdid and pneumonia started on zosyn for possible aspiration speech evaluation monitor for response follow cx considering adding atypical coverage NSTEMI first troponin 0.5 then went to 7 possible demand ischemia/stress induced rule out ACS starting on iv heparin follow serial ce and echo patient asymptomatic hx of NV can add aspirin cardiology consulted close monitor in tele Other diagnosis and plan of care as per []. Alcon navarro MD.
[2018-09-28 15:09] LABS: Appearance Urine Clear (Clear); Bacteria Urine Automated Negative (Negative); Bilirubin Urine Negative (Negative); Blood Urine Negative (Negative); Color Urine Yellow; Glucose Urine UA Negative (Negative); Ketones Urine Trace (Negative); Leukocyte Esterase Urine Negative (Negative); Nitrite Urine Negative (Negative); Protein Urine Trace (Negative); Specific Gravity Urine 1.019 (1.000-1.030); Urobilinogen Urine Negative (Negative); pH Urine 6.5 (4.5-7.5)
[2018-09-28] MEDS ORDERED: ACETAMINOPHEN 325 MG TAB PO PRN (16:14)
[2018-09-28] MEDS ORDERED: Heparin IV Standard *NO* Bolus IV SCH (17:00)
[2018-09-28] MEDS: SODIUM CHLORIDE 0.9% 1000ML 1,000 ML IV SCH (18:00)
[2018-09-28] MEDS: PIPERACILLIN/TAZOBACTAM 3.375 GM in DEXTROSE 5% 100 ML IV SCH (18:28)
[2018-09-28] MEDS ORDERED: Nursing to Pharmacy Communication ONE (18:29)
[2018-09-28] MEDS: Heparin Adult STANDARD Wt-Based Dextrose 5% 25,000 units/500 mL IV SCH (19:23)
[2018-09-28] MEDS: MIRTAZAPINE TAB 15 MG TAB PO SCH (20:16)
[2018-09-28] MEDS ORDERED: HEPARIN SOD 5,000 UNIT/0.5 ML VIAL SQ SCH (21:00)
[2018-09-29 01:41] LABS: Partial Thromboplastin Ratio 2.4
[2018-09-29 01:42] LABS: Partial Thromboplastin Time 64.9 Seconds (21.0-31.0)
[2018-09-29] MEDS: PIPERACILLIN/TAZOBACTAM 3.375 GM in DEXTROSE 5% 100 ML IV SCH ×3 (01:52→18:30)
[2018-09-29] MEDS: SODIUM CHLORIDE 0.9% 1000ML 1,000 ML IV SCH (05:48)
[2018-09-29 06:05] LABS: Mean Corpuscular Hgb Conc 34.6 g/dL (32-36); Mean Corpuscular Volume 100.4 fL (80-100); Mean Platelet Volume 10.2 fL (7.4-10.4); Platelet Count 233 K/uL (130-400); RDW Coefficient of Variation 16.7 % (11.5-14.5); RDW Standard Deviation 58.6 fL (36.4-46.3); Red Blood Count 2.59 M/uL (4.7-6.1); White Blood Count 14.27 K/uL (4.8-10.8)
[2018-09-29 06:16] LABS: BUN Creatinine Ratio 19.8 (10-20); Est GFR (African American) 55.4; Est GFR (Non-African American) 47.8; Potassium 4.2 mmol/L (3.5-5.1)
[2018-09-29 06:25] LABS: Troponin I 18.8 ng/ml (0-0.045)
--- NOTE | 2018-09-29 07:13 | Hospitalist Progress Note ---
Date of Service September 29, 2018 Subjective Made aware by RN of a.m. labs. Hemoglobin 9 (from 09/28) Troponin 18.8 (from 09/28) Patient comfortable, no overt bleeding as per RN. Stool Hemoccult negative AP Acute on chronic anemia, hemoglobin drop likely dilutional ACS DC IV fluid Trend H&H, transfuse PRBC if hemoglobin less than 8 Continue IV heparin Initiate Aspirin for secondary CAD prevention. Will relay to AM provider Results & Data Vital Signs (Past 12 Hours) Vital Signs Temp Pulse Resp BP BP Pulse Ox 09/29/18 05:28 36.7 C 57 L 17 109/56 L 95 09/29/18 00:02 36.5 C 51 L 20 112/61 96 09/28/18 19:35 36.9 C 62 20 109/60 95
[2018-09-29] MEDS: ASPIRIN 81 MG ECTAB PO SCH (09:04)
[2018-09-29] MEDS: MULTIVITAMIN TAB PO SCH (09:04)
[2018-09-29] MEDS: PANTOprazole 40 MG TAB PO SCH (09:04)
--- NOTE | 2018-09-29 11:56 | Hospitalist Progress Note ---
Date of Service September 29, 2018 Assessment & Plan (1) Pneumonia: (2) Sepsis: -Patient presenting from home with reports of shaking chills and mild cough -In ED, CXR showing right perihilar opacities consistent with pneumonitis -WBC 16K, tachycardic, Initial lactate 3.3; BP stable, Afebrile on admission --> Now WBC down to 14k, lactate normalized -Likely aspiration pneumonitis given history of difficulty chewing/swallowing -On IV Vancomycin, Zosyn. Discontinue IV Vancomycin as MRSA negative -aspirations precautions. Discussed with family about aspiratoin, risk of pneumonia, but accepts the risk of aspiration as patient would not follow any instructions and enjoys his regular meals. Cancel speech evaluation. (3) NSTEMI (non-ST elevated myocardial infarction): (4) CAD (coronary artery disease): Remote history of anterior MS in 1993 NSTEMI- Type II MS from sepsis vs Takotsubo -initial troponin 0.522 -> 7.720 -->18 -No chest pain, EKG demonstrates unchanged bi fasicular block -Aspirin was stopped previously due to remote history of GIST tumor s/p resection, beta fanny and ACEI discontinued due to hypotension. -Started on IV Heparin on 09/28/18. Not a cardiac cath candidate given failure to thrive, advanced age, no aggressive measures per family -Discussed with GI on admission regarding use of IV heparin and aspirin - no contraindications at this time given that GIST and resection was in the remote past -Resting Echo- EF 4-45%, Gd I diastolic dysfunction -cardio consulted. (5) Severe protein-calorie malnutrition: Failure to thrive (6) Chronic anemia: -Pernicious anemia with anemia of chronic disease -Receives procrit and Vit B12 injections as an outpatient -Baseline hgb ~ 11, now down to 9 with no overt GI bleeding -Monitor (7) DVT prophylaxis: -On IV heparin as above DISPOSTION Discussed with family - daughter by bedside. Does not want any aggressive measures or invasive procedures. Comfort is the goal. CODE STATUS confirmedDNR/DNI Subjective Patient is awake, alert, disoriented x3. Feeding himself and finished almost 100% of his lunch Denies any chest pain, shortness of breath, cough, fever, chills. Not hypoxic, saturating well on room air Physical Exam Constitutional: GENERAL-Awake, alert, disoriented x 3, not in distress; Cachexia LUNGS- Air entry bilaterally decreased. HEART- Regular rate and rhythm. No murmurs EXTREMITIES- Good peripheral pulses, no edema Results & Data Vital Signs (Past 12 Hours) Vital Signs Temp Pulse Resp BP BP Pulse Ox 09/29/18 11:37 36.4 C L 49 L 16 117/54 L 97 09/29/18 07:51 36.4 C L 54 L 20 117/59 L 96 09/29/18 05:28 36.7 C 57 L 17 109/56 L 95 09/29/18 00:02 36.5 C 51 L 20 112/61 96
--- NOTE | 2018-09-29 11:59 | Consultation Report ---
DATE OF CONSULTATION: 09/29/2018 CONSULTATION REQUESTED BY: KATHERINE Timmons. REASON FOR CONSULTATION: Elevated troponin. HISTORY OF PRESENT ILLNESS: The patient is a very pleasant 88-year-old gentleman, who presented to [facility] on 09/28/2018 with a complaint of cough and chills. The patient states he woke up on the day of presentation feeling shaking chills as though he could not get warm. He had a mild wet cough and was unable to produce any sputum. He was brought in by family to the Emergency Room for further evaluation. Chest x-ray revealed a likely pneumonitis and cardiac enzymes were drawn for some reason and second set came back elevated at 7. I discussed the case with KATHERINE Timmons, at that time. The patient was completely asymptomatic from a cardiac standpoint without any ST segment elevations on 12-lead EKG and heparin was started. No events overnight. His troponin peaked at 18 and currently he is resting comfortably. He states that at this time he feels fine. He denies experiencing any chest pain, shortness of breath, palpitations, lightheadedness, dizziness or syncope. Other than this bout of pneumonitis, he states he has been in normal health lately without any significant complaints. Of note, the patient usually follows with Dr. Freitas of our Cardiology practice for history of trifascicular block and remote anterior myocardial infarction. PAST SURGICAL HISTORY: 1. Upper endoscopy. 2. Stomach resection. MEDICAL ILLNESSES: 1. Coronary artery disease status post anterior wall myocardial infarction. 2. Acoustic neuroma. 3. Pernicious anemia. 4. Dyslipidemia. 5. Trifascicular block. 6. Anemia of chronic disease. 7. History of gastrointestinal stromal tumor. 8. History of prostate cancer. FAMILY HISTORY: Noncontributory. SOCIAL HISTORY: Denies any alcohol, tobacco or recreational drug use. He is and lives with his in a local custodial community in [place]. REVIEW OF SYSTEMS: As per HPI, all other review of systems reviewed and negative at this time. ALLERGIES: No known drug allergies. MEDICATIONS AN OUTPATIENT: 1. Remeron at bedtime. 2. Omeprazole daily. 3. Procrit injections. PHYSICAL EXAMINATION: VITAL SIGNS: Temperature 36.4, pulse 54, respiratory rate 12, blood pressure 117/59. GENERAL: Awake, alert, oriented x3, answering questions appropriately. No acute distress. HEENT: Normocephalic, atraumatic. Pupils equal, round, reactive to light and accommodation. Extraocular muscles intact. Anicteric sclerae. Moist mucous membranes. NECK: No JVD, no bruit. CARDIOVASCULAR: Regular. Positive S4. Normal S1 and S2. No S3. A 3/6 mid to late systolic ejection murmur greatest at the right sternal border second intercostal space with radiation to bilateral carotids. No rubs. PULMONARY: Clear to auscultation bilaterally. No rales, rhonchi or wheezing. ABDOMEN: Bowel sounds x4, soft. No rebound, guarding, tenderness. No organomegaly. EXTREMITIES: No clubbing, cyanosis or edema. +2 pedal pulses bilaterally. SKIN: Warm and dry. TEST RESULTS: Chest x-ray performed in the Emergency Department was read as interval development of right perihilar airspace opacity suspicious for pneumonitis. A 12-lead EKG performed in the Emergency Department independently reviewed at this time shows sinus tachycardia at 101 beats per minute, first degree AV block, right bundle branch block, left anterior fascicular block, trifascicular block pattern, no acute ST segment changes. LABORATORY STUDIES OF SIGNIFICANCE: Initial troponin of 0.5, followed by 7.7, followed by 18, followed by 18.8. A 2D echocardiogram was read as normal LV chamber size at the level of the base that progresses to apical dilatation, mildly reduced LV systolic function, EF 40%-45%, normal wall motion of the basal wall segments with progressive hypokinesis at the mid levels and apical akinesis, grade 1 diastolic dysfunction, moderate aortic valve sclerosis without stenosis. IMPRESSION: 1. Pneumonitis. 2. 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 3. History of anterior myocardial infarction. RECOMMENDATIONS: It was my pleasure to see the patient in consultation today. Given the clinical context of the patient being symptom free and a catecholamine-induced pattern on echocardiogram, I do not believe the patient is suffering from an acute ischemic event, so at this point I will complete 48 hours of heparin. Unfortunately, his blood pressure and heart rate will not support beta-fanny addition. Again even if this was an acute ischemic event, he is symptom free and I do not believe the patient would benefit from cardiac catheterization, so we will continue to monitor for now. GI has given the go ahead to restart aspirin given his history of gastric tumor and it has been.
[2018-09-29 12:17] LABS: Hematocrit (blood only) 27.8 % (42-52); Hemoglobin 9.4 g/dL (14.0-18.0)
[2018-09-29] MEDS: MIRTAZAPINE TAB 15 MG TAB PO SCH (21:02)
[2018-09-30] MEDS: PIPERACILLIN/TAZOBACTAM 3.375 GM in DEXTROSE 5% 100 ML IV SCH ×2 (02:56→10:09)
[2018-09-30] MEDS: Heparin Adult STANDARD Wt-Based Dextrose 5% 25,000 units/500 mL IV SCH (04:19)
[2018-09-30 06:04] LABS: Hematocrit (blood only) 29.3 % (42-52); Hemoglobin 9.8 g/dL (14.0-18.0); Mean Corpuscular Hgb Conc 33.4 g/dL (32-36); Mean Platelet Volume 10.3 fL (7.4-10.4); Nucleated RBC # (auto) 0.02 K/uL (0-0); Nucleated RBC % (auto) 0.2 %; Platelet Count 228 K/uL (130-400); RDW Coefficient of Variation 16.9 % (11.5-14.5); RDW Standard Deviation 59.1 fL (36.4-46.3); White Blood Count 8.69 K/uL (4.8-10.8)
[2018-09-30 06:23] LABS: Partial Thromboplastin Ratio 2.2
[2018-09-30 06:26] LABS: Partial Thromboplastin Time 58.7 Seconds (21.0-31.0)
[2018-09-30 06:49] LABS: BUN Creatinine Ratio 16.9 (10-20); Calcium 8.2 mg/dl (8.5-10.1); Creatinine Clr Calc Pharmacy 23.2 ml/min; Est GFR (African American) 55.9; Est GFR (Non-African American) 48.3
[2018-09-30] MEDS: ASPIRIN 81 MG ECTAB PO SCH (08:09)
[2018-09-30] MEDS: MULTIVITAMIN TAB PO SCH (08:09)
[2018-09-30] MEDS: PANTOprazole 40 MG TAB PO SCH (08:09)
--- NOTE | 2018-09-30 09:38 | Cardiology Progress Note ---
Date of Service September 30, 2018 Assessment & Plan (1) Pneumonia: The patient WBC count has improved. Chest x-ray report noted. (2) Elevated troponin: Uncertain as to the etiology for the troponin elevation however, I do not believe it is due to ACS. Could be secondary due to the pneumonitis. (3) Malignant GIST (gastrointestinal stromal tumor): (4) CAD (coronary artery disease): The patient has a remote history previous anterior wall AR which could explain the wall motion abnormalities on the echocardiogram. At this point I agree with conservative management as the patient is stable and improving after the start of antibiotics. Due to his advanced age and dementia I do not believe that he is a candidate for invasive procedure. Subjective The patient is comfortable and sitting in a chair. Review of Systems Review of Systems: All systems reviewed & are unremarkable except as noted in HPI & below Unchanged Physical Exam Physical Exam: General: no acute distress and stated age Head: normocephalic, no masses, lesions, tenderness or abnormalities Eyes: conjunctiva are pink and non-injected, sclera clear Neck: supple, no adenopathy, no bruits, normal jugular venous pulse, no hepatojugular reflux Chest: normal shape and normal respiratory effort Lungs: clear to auscultation and percussion Cardiac Exam: - regular rate & rhythm, no murmurs gallops or rubs - normal S1, normal S2 Pulses: 2(+) throughout Abdomen: abdomen soft, non-tender, no abnormal masses and no hepatosplenomegaly Musculoskeletal: no gait disturbance, no joint inflammation, no deforming arthritis Extremities: no edema and no cyanosis Neuro: grossly normal exam Results & Data Vital Signs (Past 12 Hours) Vital Signs Temp Pulse Pulse Resp BP Pulse Ox 09/30/18 08:00 54 L 09/30/18 07:48 36.3 C L 96 H 14 126/69 95 09/30/18 03:29 35.3 C L 57 L 18 129/71 96 09/29/18 23:59 54 L 09/29/18 23:35 36.5 C 58 L 18 125/74 97 Laboratory Results Laboratory Results - last 24 hr 09/29/18 09/29/18 09/30/18 12:06 12:06 05:09 WBC RBC Hgb 9.4 L Hct 27.8 L MCV MCH MCHC RDW Std Deviation RDW Coeff of Jose Plt Count MPV Absolute Nucleated RBC Nucleated RBC % (auto) APTT PTT Ratio Sodium 136 Potassium 4.0 Chloride 102 Carbon Dioxide 29 Anion Gap 5.0 BUN 22 H Creatinine 1.31 Est Cr Clr Drug Dosing 23.2 Est GFR ( Amer) 55.9 Est GFR (Non-Af Amer) 48.3 BUN/Creatinine Ratio 16.9 Glucose 91 Calcium 8.2 L Blood Type O Positive Antibody Screen NEGATIVE 09/30/18 09/30/18 05:09 05:09 WBC 8.69 RBC 2.90 L Hgb 9.8 L Hct 29.3 L MCV 101.0 H MCH 33.8 MCHC 33.4 RDW Std Deviation 59.1 H RDW Coeff of Jose 16.9 H Plt Count 228 MPV 10.3 Absolute Nucleated RBC 0.02 H Nucleated RBC % (auto) 0.2 APTT 58.7 H* PTT Ratio 2.2 Sodium Potassium Chloride Carbon Dioxide Anion Gap BUN Creatinine Est Cr Clr Drug Dosing Est GFR ( Amer) Est GFR (Non-Af Amer) BUN/Creatinine Ratio Glucose Calcium Blood Type Antibody Screen Medications Administered Current Inpatient Medications Acetaminophen (Tylenol) 650 mg PO Q4H PRN PRN Reason: pain/fever Stop: 10/28/18 16:13 Aspirin (Ecotrin Ectab) 81 mg PO QAM [facility] Stop: 10/29/18 07:14 Last Admin: 09/30/18 08:09 Dose: 81 mg Documented by: Piperacillin Sod/Tazobactam (Sod 3.375 gm/ Dextrose) 115 mls @ 28.75 mls/hr IV Q8H GIRMA; Protocol Stop: 10/05/18 17:59 Last Infusion: 09/30/18 06:56 Dose: Infused Documented by: Heparin Sodium/Dextrose (Heparin Sodium/Dextrose) 25,000 units in 500 mls @ 15 mls/hr IV .Q24H GIRMA; Protocol Stop: 10/28/18 18:44 Last Titration: 09/30/18 06:51 Dose: 750 units/hr, 15 mls/hr Documented by: Mirtazapine (Remeron) 15 mg PO QPM GIRMA Stop: 10/28/18 20:59 Last Admin: 09/29/18 21:02 Dose: 15 mg Documented by: Miscellaneous Information (Consult) 1 ea N/A UD PRN PRN Reason: Consult Stop: 10/28/18 12:58 Multivitamins (Multivitamin Tab) 1 tab PO DAILY [facility] Stop: 10/29/18 08:59 Last Admin: 09/30/18 08:09 Dose: 1 tab Documented by: Pantoprazole Sodium (Protonix) 40 mg PO DAILY [facility] Stop: 10/29/18 08:59 Last Admin: 09/30/18 08:09 Dose: 40 mg Documented by:
--- NOTE | 2018-09-30 12:24 | Hospitalist Progress Note ---
Date of Service September 30, 2018 Assessment & Plan (1) Pneumonia: (2) Sepsis: -Patient presenting from home with reports of shaking chills and mild cough -In ED, CXR showing right perihilar opacities consistent with pneumonitis -On admission: WBC 16K, tachycardic, Initial lactate 3.3; BP stable, Afebrile on admission --> Now leucocytosis resolved, lactic acid normalized. -Likely aspiration pneumonitis given history of difficulty chewing/swallowing -S/P IV Vancomycin, Zosyn. Discontinued IV Vancomycin as MRSA negative. Will change antibiotics to PO Augmentin - complete 10 day course (Day 08/13) -Aspirations precautions. Discussed with family about aspiration, risk of pneumonia, but accepts the risk of aspiration as patient would not follow any instructions and enjoys his regular meals. Discontinued speech evaluation. (3) NSTEMI (non-ST elevated myocardial infarction): (4) CAD (coronary artery disease): Remote history of anterior PA in 1993 NSTEMI- Type II PA from sepsis vs [place] -Initial troponin 0.522 -> 7.720 -->18 -No chest pain, EKG demonstrates unchanged bi - fasicular block -Aspirin was stopped previously due to remote history of GIST tumor s/p resection, beta fanny and ACEI discontinued due to hypotension. -Started on IV Heparin on 09/28/18. Not a cardiac cath candidate given failure to thrive, advanced age, no aggressive measures per family -Discussed with GI on admission regarding use of IV heparin and aspirin - no contraindications at this time given that GIST and resection was in the remote past -Resting Echo - EF 40-45%, Gd I diastolic dysfunction -Cardio on board - Agrees with current conservative management. PLAN: Will discontinue IV Heparin in 48 hours. 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 Does not want any aggressive measures or invasive procedures. Comfort is the goal. Plan is for [facility] on Tuesday Subjective Patient is sitting in chair and having his lunch. No episodes of chest pain. No SOB. Cough minimal not bringing up much sputum. No fever, chills. No leg swelling Not hypoxic. Physical Exam Physical Exam: GENERAL-Awake, alert, oriented to self, disoriented x 3, not in distress; Cachexia LUNGS- Air entry bilaterally decreased. HEART- Regular rate and rhythm. No murmurs EXTREMITIES- Good peripheral pulses, no edema Results & Data Vital Signs (Past 12 Hours) Vital Signs Temp Pulse Pulse Resp BP BP Pulse Ox 09/30/18 11:03 36.5 C 50 L 15 119/62 97 09/30/18 08:00 54 L 09/30/18 07:48 36.3 C L 96 H 14 126/69 95 09/30/18 03:29 35.3 C L 57 L 18 129/71 96
[2018-09-30] MEDS: AMOXICILLIN/CLAVULANATE 500 MG TAB PO SCH (17:09)
[2018-09-30] MEDS: MIRTAZAPINE TAB 15 MG TAB PO SCH (20:46)
[2018-10-01 06:47] LABS: Partial Thromboplastin Ratio 1.1; Partial Thromboplastin Time 29.9 Seconds (21.0-31.0)
[2018-10-01 07:03] LABS: Est GFR (African American) 69.9; Est GFR (Non-African American) 60.3
[2018-10-01] MEDS: AMOXICILLIN/CLAVULANATE 500 MG TAB PO SCH ×2 (07:50→17:29)
[2018-10-01] MEDS: PANTOprazole 40 MG TAB PO SCH (07:50)
[2018-10-01] MEDS: MULTIVITAMIN TAB PO SCH (07:50)
[2018-10-01] MEDS: ASPIRIN 81 MG ECTAB PO SCH (07:50)
[2018-10-01] MEDS: METOPROLOL SUCC 25MG EXT REL TAB PO SCH (09:11)
--- NOTE | 2018-10-01 09:58 | Hospitalist Progress Note ---
Date of Service October 01, 2018 Assessment & Plan (1) Pneumonia: (2) Sepsis: -Patient presenting from home with reports of shaking chills and mild cough -In ED, CXR showing right perihilar opacities consistent with pneumonitis -On admission: WBC 16K, tachycardic, Initial lactate 3.3; BP stable, Afebrile on admission --> Now leucocytosis resolved, lactic acid normalized. -Possibly Aspiration pneumonitis -S/P IV Vancomycin, Zosyn. Discontinued IV Vancomycin as MRSA negative. Changed antibiotics to PO Augmentin on 09/30/18 to complete 10 day course (Day 09/13) -Aspirations precautions. Discussed with family about aspiration, risk of pneumonia, but accepts the risk of aspiration as patient would not follow any instructions and enjoys his regular meals. Discontinued speech evaluation. (3) NSTEMI (non-ST elevated myocardial infarction): (4) CAD (coronary artery disease): Remote history of anterior [place] in 1993 NSTEMI- Type II ID with sepsis on presentation -Initial troponin 0.522 -> 7.720 -->18 -No chest pain, EKG demonstrates unchanged bi - fasicular block -Aspirin was stopped previously due to remote history of GIST tumor s/p resection, beta fanny and ACEI discontinued due to hypotension. Restarted Aspirin. Toprol XL 25 mg, Lisinopril 5 mg started today as BP elevated -S/P IV Heparin x 48 hours. Not a cardiac cath candidate given failure to thrive, advanced age, no aggressive measures per family -Discussed with GI on admission regarding use of IV heparin and aspirin - no contraindications at this time given that GIST and resection was in the remote past -Resting Echo - EF 40-45%, Gd I diastolic dysfunction -Cardio on board - Agrees with current conservative management. 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 Will start Heparin SQ for prophylaxis CODE STATUS confirmedDNR/DNI DISPOSITION Discussed with family - daughter by bedside. Does not want any aggressive measures or invasive procedures. Comfort is the goal. Plan is for [facility] on Tuesday Subjective Patient is sitting in chair and having his lunch. No episodes of chest pain. No SOB. Cough minimal not bringing up much sputum. No fever, chills. No leg swelling Not hypoxic. Physical Exam Physical Exam: GENERAL-Awake, alert, oriented to self, disoriented x 3, not in distress; Cachexia LUNGS- Air entry bilaterally decreased. HEART- Regular rate and rhythm. No murmurs EXTREMITIES- Good peripheral pulses, no edema Results & Data Vital Signs (Past 12 Hours) Vital Signs Temp Pulse Pulse Resp BP BP Pulse Ox 10/01/18 08:00 61 10/01/18 06:34 36.4 C L 62 20 168/83 H 96 10/01/18 05:00 60 18 154/81 H 97 10/01/18 04:24 36.3 C L 59 L 22 165/82 H 98 09/30/18 23:33 36.5 C 61 20 157/71 H 97
[2018-10-01] MEDS: LISINOPRIL 5 MG TAB PO SCH (10:38)
[2018-10-01] MEDS: MIRTAZAPINE TAB 15 MG TAB PO SCH (20:11)
[2018-10-02 06:16] LABS: Partial Thromboplastin Ratio 1.1; Partial Thromboplastin Time 30.8 Seconds (21.0-31.0)
[2018-10-02] MEDS: ASPIRIN 81 MG ECTAB PO SCH (07:14)
[2018-10-02] MEDS: METOPROLOL SUCC 25MG EXT REL TAB PO SCH (07:14)
[2018-10-02] MEDS: AMOXICILLIN/CLAVULANATE 500 MG TAB PO SCH ×2 (07:14→16:22)
[2018-10-02] MEDS: MULTIVITAMIN TAB PO SCH (07:14)
[2018-10-02] MEDS: LISINOPRIL 5 MG TAB PO SCH (07:14)
[2018-10-02] MEDS: PANTOprazole 40 MG TAB PO SCH (07:14)
--- NOTE | 2018-10-02 11:11 | Hospitalist Progress Note ---
Date of Service October 02, 2018 Assessment & Plan (1) Pneumonia: (2) Sepsis: -Patient presenting from home with reports of shaking chills and mild cough -In ED, CXR showing right perihilar opacities consistent with pneumonitis -On admission: WBC 16K, tachycardic, Initial lactate 3.3; BP stable, Afebrile on admission --> Now leucocytosis resolved, lactic acid normalized. -Possibly Aspiration pneumonitis -S/P IV Vancomycin, Zosyn. Discontinued IV Vancomycin as MRSA negative. Changed antibiotics to PO Augmentin on 09/30/18 to complete 10 day course (Day 10/13) -Aspirations precautions. Discussed with family about aspiration, risk of pneumonia, but accepts the risk of aspiration as patient would not follow any instructions and enjoys his regular meals. Discontinued speech evaluation. (3) NSTEMI (non-ST elevated myocardial infarction): (4) CAD (coronary artery disease): Remote history of anterior [place] in 1993 NSTEMI- Type II [place] with sepsis on presentation -Initial troponin 0.522 -> 7.720 -->18 -No chest pain, EKG demonstrates unchanged bi - fasicular block -Aspirin was stopped previously due to remote history of GIST tumor s/p resection, beta fanny and ACEI discontinued due to hypotension. Restarted Aspirin. Toprol XL 25 mg, Lisinopril 5 mg started on 10/01 as BP elevated -S/P IV Heparin x 48 hours. Not a cardiac cath candidate given failure to thriv e, advanced age, no aggressive measures per family -Discussed with GI on admission regarding use of IV heparin and aspirin - no contraindications at this time given that GIST and resection was in the remote past -Resting Echo - EF 40-45%, Gd I diastolic dysfunction -Cardio on board - Agrees with current conservative management. 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 Will start Heparin SQ for prophylaxis CODE STATUS confirmedDNR/DNI DISPOSITION Discussed with family - daughter by bedside. Does not want any aggressive measures or invasive procedures- wants to keep him comfortable Interested in rehab. Awaiting placement, okay to discharge from medical point of view Subjective Patient is sitting in chair . Disoriented x 3 but pleasant and conversing. No episodes of chest pain. No SOB. Cough minimal not bringing up much sputum. No fever, chills. No leg swelling Not hypoxic. Physical Exam Physical Exam: GENERAL-Awake, alert, oriented to self, disoriented x 3, not in distress; Cachexia LUNGS- Air entry bilaterally decreased. HEART- Regular rate and rhythm. No murmurs EXTREMITIES- Good peripheral pulses, no edema Results & Data Vital Signs (Past 12 Hours) Vital Signs Temp Pulse Pulse Resp BP BP Pulse Ox 10/02/18 07:34 36.4 C L 63 20 148/56 H 96 10/02/18 04:33 36.8 C 62 26 H 141/63 H 96 10/01/18 23:59 58 L 10/01/18 23:44 36.5 C 60 24 162/79 H 98
[2018-10-02] MEDS: ONDANSETRON 4 MG TAB PO PRN ×2 (15:11→19:04)
[2018-10-02] MEDS: MIRTAZAPINE TAB 15 MG TAB PO SCH (19:04)
--- OUTSIDE RECORDS SUMMARY | 2018-10-02 21:21 | External Medical Summary | Continuity of Care Document ---
:1930 Author Name Theodora Sena, Provider Address Unavailable Unavailable , Care Team Providers Name Role Phone Yimi Mccormick M.D. Unavailable [email or web address] MARVIN OLSON Unavailable Unavailable Unavailable Unavailable Unavailable Assessments Assessed Problems:Prostate cancerUrinary symptom or sign Problems Urinary symptom or sign (788.99) (R39.9) Prostate cancer (185) (C61) Allergies and Adverse Reactions No Known Drug Allergies (Allergy) Medications Gleevec 400 MG Oral Tablet Refills: 0 One Daily Mens Oral Tablet Refills: 0 Metoprolol Tartrate TABS Refills: 0 Lisinopril TABS Refills: 0 Tamsulosin HCl - 0.4 MG Oral Capsule; TA KE 1 CAPSULE Daily 1/2 hour after supper Nathen Mccormick Quantity: 90 Refills: 3 Calcium TABS Refills: 0 Vitamin D3 1000 UNIT Oral Capsule Refills: 0 Procedures History of Gastric Surgery Status: Compl eted Immunizations Immunizations not documented Family History Unknown Family Member Family history of Colon Cancer (V16.0) Status: Active C omments: Family History Family history of Hypertension (V17.49) Status: Active Comments: Family History Father Family history of Cerebromeningeal Hemorrhage Status: Active Social History - Smoking Status Never smoker Interventions Follow-ups/ReferralsFollow-up visit in 1 year; Done: 05 Apr 2018 Discussion/SummaryAssessment1. Prostate cancer-doing well post treatment2. Lower urinary tract symptoms-doing well on Flomax-continue Plan of Treatment Planned Observations Total PSA Start: 06-Mar-2019 Intent Results No Known Results Results not documented Encounters Appointment; Yimi Mccormick M.D. 05-Apr-2017 11:00 Encounter Diagnosis: Problem not documented Appointment; Yimi Mccormick M.D. 05-Apr-2018 13:15 Encounter Diagnosis: Problem not documented
[2018-10-03] MEDS: AMOXICILLIN/CLAVULANATE 500 MG TAB PO SCH (07:41)
[2018-10-03] MEDS: ONDANSETRON 4 MG TAB PO PRN ×2 (07:41→12:45)
[2018-10-03] MEDS: METOPROLOL SUCC 25MG EXT REL TAB PO SCH (07:41)
[2018-10-03] MEDS: MULTIVITAMIN TAB PO SCH (07:41)
[2018-10-03] MEDS: PANTOprazole 40 MG TAB PO SCH (07:41)
[2018-10-03] MEDS: LISINOPRIL 5 MG TAB PO SCH (07:42)
[2018-10-03] MEDS: ASPIRIN 81 MG ECTAB PO SCH (07:42)
--- NOTE | 2018-10-03 12:31 | Hospitalist Progress Note ---
Date of Service October 03, 2018 Assessment & Plan (1) Pneumonia: (2) Sepsis: Patient presented from home with reports of shaking chills and mild cough -In ED, CXR showing right perihilar opacities consistent with pneumonitis -On admission: WBC 16K, tachycardic, Initial lactate 3.3; BP stable, Afebrile on admission --> Leucocytosis resolved, lactic acid normalized. -Possible Aspiration pneumonitis -S/P IV Vancomycin, Zosyn. Discontinued IV Vancomycin as MRSA negative. Changed antibiotics to PO Augmentin on 09/30/18 to complete 10 day course (Day 11/13) -Aspirations precautions. Discussed with family about aspiration, risk of pneumonia, but accepts the risk of aspiration as patient would not follow any instructions and enjoys his regular meals. Discontinued speech evaluation. (3) NSTEMI (non-ST elevated myocardial infarction): (4) CAD (coronary artery disease): Remote history of anterior [place] in 1993 NSTEMI- Type II [place] with sepsis on presentation -Initial troponin 0.522 -> 7.720 -->18 -No chest pain, EKG demonstrates unchanged bi - fasicular block -Aspirin was stopped previously due to remote history of GIST tumor s/p resection, beta fanny and ACEI discontinued due to hypotension. Restarted Aspirin. Toprol XL 25 mg, Lisinopril 5 mg started on 10/01 as BP elevated -S/P IV Heparin x 48 hours. Not a cardiac cath candidate given failure to thrive, advanced age, no aggressive measures per family -Discussed with GI on admission regarding use of IV heparin and aspirin - no contraindications at this time given that GIST and resection was in the remote past -Resting Echo - EF 40-45%, Gd I diastolic dysfunction -Cardio on board - Agrees with current conservative management. 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 CODE STATUS confirmedDNR/DNI DISPOSITION Discussed with family - daughter and son. Does not want any aggressive measures or invasive procedures- wants to keep him comfortable Was waiting for placement. [facility]. Eventually family has decided to take him home. Ok to discharge home with home health services/PT Subjective Patient is comfortable, having his lunch. Disoriented x 3 but pleasant and conversing. No episodes of chest pain. No SOB. Cough minimal not bringing up much sputum. No fever, chills. No leg swelling Not hypoxic. Eager to be discharged Physical Exam Physical Exam: GENERAL-Awake, alert, oriented to self, disoriented x 3, not in distress; Cachexia LUNGS- Air entry bilaterally decreased. HEART- Regular rate and rhythm. No murmurs EXTREMITIES- Good peripheral pulses, no edema Results & Data Vital Signs (Past 12 Hours) Vital Signs Temp Pulse Resp BP Pulse Ox 10/03/18 10:54 36.9 C 71 17 183/83 H 96 10/03/18 06:50 36.5 C 70 26 H 179/79 H 96 10/03/18 03:25 36.6 C 72 22 169/81 H 96
--- NOTE | 2018-10-03 12:38 | Discharge Summary ---
Date of Service October 03, 2018 Admission HPI Per Admitting Provider 88-year-old male who presents the ED with reports of chills and cough. Patient reports he woke up around 9:00 this morning and had shaking chills and could not get warm. He also reports a mild wet cough. He reports he was unable to cough up any sputum. Patient was then brought to the ED for further evaluation. Patient reports he was feeling his usual state of health yesterday. Patient does have a chronically poor appetite and has been struggling with weight loss. He also has trouble chewing his food at times and swallowing difficulties. Patient denies chest pain and shortness of breath. He reports lightheadedness and dizziness with standing which is been a chronic issue. No syncopal events. He reports associated nausea this morning however denies any vomiting. No abdominal pain or diarrhea. He denies any urinary symptoms. In the ED, CXR showing right perihilar opacities consistent with pneumonitis. WBC 16 K, lactate 3.3, initially tachycardic which improved with IVF. Troponin mildly elevated at 0.522, EKG without acute ST changes. Patient was also given IV Zosyn. Principal Diagnosis 1. NSTEMI 2. Sepsis secondary to pneumonia, possibly aspiration Secondary diagnosis on discharge 1 Hx of CAD 2.Severe protein energy malnutrition 3.Chronic anemia Discharge Exam GENERAL-Awake, alert, oriented to self, disoriented x 3, not in distress; Cachexia LUNGS- Air entry bilaterally decreased. HEART- Regular rate and rhythm. No murmurs EXTREMITIES- Good peripheral pulses, no edema Discharge Data Allergies Allergy/AdvReac Type Severity Reaction Status Date / Time No Known Allergies Allergy Unknown Verified 09/28/18 12:55 Consultations 09/28/18 13:25 ED Decision to Admit Stat 09/28/18 16:14 Consult Case Management - Discharge Planning Routine 09/28/18 16:59 Consult Cardiology Routine Hospital Course (1) Pneumonia: (2) Sepsis: Patient presented from home with reports of shaking chills and mild cough -In ED, CXR showing right perihilar opacities consistent with pneumonitis -On admission: WBC 16K, tachycardic, Initial lactate 3.3; BP stable, Afebrile on admission --> Leucocytosis resolved, lactic acid normalized. -Possible Aspiration pneumonitis -S/P IV Vancomycin, Zosyn. Discontinued IV Vancomycin as MRSA negative. Changed antibiotics to PO Augmentin on 09/30/18 to complete 10 day course (Day 11/13) -Aspirations precautions. Discussed with family about aspiration, risk of pneumonia, but accepts the risk of aspiration as patient would not follow any instructions and enjoys his regular meals. Discontinued speech evaluation. (3) NSTEMI (non-ST elevated myocardial infarction): (4) CAD (coronary artery disease): Remote history of anterior [place] in 1993 NSTEMI- Type II [place] with sepsis on presentation -Initial troponin 0.522 -> 7.720 -->18 -No chest pain, EKG demonstrates unchanged bi - fasicular block -Aspirin was stopped previously due to remote history of GIST tumor s/p resection, beta fanny and ACEI discontinued due to hypotension. Restarted Aspirin. Toprol XL 25 mg, Lisinopril 5 mg started on 10/01 as BP elevated -S/P IV Heparin x 48 hours. Not a cardiac cath candidate given failure to thrive, advanced age, no aggressive measures per family -Discussed with GI on admission regarding use of IV heparin and aspirin - no contraindications at this time given that GIST and resection was in the remote past -Resting Echo - EF 40-45%, Gd I diastolic dysfunction -Cardio on board - Agrees with current conservative management. 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 CODE STATUS confirmedDNR/DNI DISPOSITION Discussed with family - daughter and son. Does not want any aggressive measures or invasive procedures- wants to keep him comfortable Was [facility]. [facility]. Eventually family has decided to take him home. Ok to discharge home with home health services/PT Total Time Total Time Spent Total Time Spent (In Minutes): 35 minutes Discharge Plan Discharge Items Patient Disposition: Home - Home Health Services Reason For Visit: PNEUMONIA Discharge Diagnosis: 1. NSTEMI 2. Aspiration pneumonia Discharge Goals: Decrease discomfort Activity: Resume your previous activity Non-emergency contact: Primary Care Provider Call non-emergency contact if: your symptoms worsen Follow-up/Referrals: Ramiro Lewis MD [Primary Care Provider] - 10/09/18 11:45 am Diet: Heart Healthy Addtl Provider Instructions: You were diagnosed with pneumonia, sepsis and had a heart attack. You were treated with antibiotics, Blood thinners- IV heparin. MEDICATION CHANGES 1. New medication- Aspirin 81 mg daily 2. New medication- Toprol XL 25 mg daily 3. New medication- Lisinopril 5 mg daily 4. New medication- Augmentin twice a day as instructed x 5 more days to complete 10 course of antibiotics Prescriptions: New lisinopril [Zestril] 5 mg Tablet 5 mg PO DAILY 30 Days Qty: 30 RF: 0 metoprolol succinate 25 mg Tablet Extended Release 24 Hr 25 mg PO QAM 30 Days Qty: 30 RF: 0 amoxicillin-pot clavulanate 500-125 mg Tablet 1 tab PO BIDM 5 Days Qty: 10 RF: 0 Continued multivitamin Tablet 1 tab PO DAILY RF: 0 omeprazole 20 mg Capsule,Delayed Release(Dr/Ec) 20 mg PO DAILY RF: 0 mirtazapine 15 mg tablet 15 mg PO QPM RF: 0 Stand-Alone Forms: [facility] Discharge Orders: Discharge Order (Routine); Ordered 10/03/18 Ordered By: Victoria Clayton Admission Data Admit Date/Time: 09/28/18 14:26 Attending Provider: Victoria Clayton Admit Provider: Alcon Jimenez Primary Care Provider: Ramiro Lewis Other Providers: Alcon Jimenez ; Yimi Weber Service: Telemetry
== END 2018-10-03 14:30 | disposition home health service (06) | DRG 871 ==
LOC: ED 11:20 → 2N 14:26 → 2S 16:46

== ENCOUNTER 2018-10-07 15:46 | Inpatient (IN) ==
[2018-10-07] MEDS ORDERED: ALBUT/IPRATROP 3MG/0.5MG NEB 3 ML VIAL NEB STA (15:57)
[2018-10-07] MEDS ORDERED: SODIUM CHLORIDE 0.9% 1000ML 1,000 ML IV SCH (16:00)
[2018-10-07 16:18] LABS: Basophils # (auto) 0.01 K/uL (0-0.2); Basophils % (auto) 0.1 %; Hematocrit (blood only) 34.6 % (42-52); Hemoglobin 11.7 g/dL (14.0-18.0); Immature Granulocytes # (auto) 0.08 K/uL (0.00-0.02); Immature Granulocytes % (auto) 0.5 %; Lymphocytes % (auto) 5.2 %; Mean Corpuscular Hgb Conc 33.8 g/dL (32-36); Mean Platelet Volume 10.1 fL (7.4-10.4); Monocytes # (auto) 0.81 K/uL (0.11-0.59); Monocytes % (auto) 5.2 %; Neutrophils # (auto) 13.75 K/uL (1.4-6.5); Nucleated RBC # (auto) 0.04 K/uL (0-0); Nucleated RBC % (auto) 0.3 %; Platelet Count 291 K/uL (130-400); RDW Coefficient of Variation 17.3 % (11.5-14.5); RDW Standard Deviation 60.9 fL (36.4-46.3); Red Blood Count 3.46 M/uL (4.7-6.1); White Blood Count 15.45 K/uL (4.8-10.8)
[2018-10-07] MEDS ORDERED: ONDANSETRON INJ 2 MG/ML 2 ML VIAL IV STA (16:26)
[2018-10-07 16:27] LABS: INR 1.3 (0.9-1.1)
--- NOTE | 2018-10-07 16:47 | XRay Report ---
XR chest 1V portable CLINICAL HISTORY: weakness COMPARISON STUDY: Chest radiograph September 28, 2018. FINDINGS: There is no pneumothorax. There is a suspected small left pleural effusion. Right infrahila r opacity has improved since exam of September 28, 2018. There has been interval development of left basi lar consolidation. There is no evidence for pulmonary edema. Patient is rotated. IMPRESSION: Interval development of left basilar opacity which favors pneumonia. Radiographic follow -up to ensure resolution is recommended. Electronically signed by: Nico Rosa M.D. 10/07/2018 4:46 PM
[2018-10-07 16:57] LABS: Alanine Aminotransferase 16 U/L (12-78); Albumin Level 3.1 gm/dl (3.4-5.0); Aspartate Aminotransferase 39 U/L (15-37); BUN Creatinine Ratio 35.7 (10-20); Blood Urea Nitrogen 68 mg/dl (7-18); Calcium 9.2 mg/dl (8.5-10.1); Carbon Dioxide 29 mmol/L (21-32); Chloride 108 mmol/L (98-107); Est GFR (African American) 35.2; Est GFR (Non-African American) 30.4; Glucose 78 mg/dl (70-99); Magnesium 2.9 mg/dl (1.8-2.4); Potassium 4.5 mmol/L (3.5-5.1); Sodium 144 mmol/L (136-145)
[2018-10-07] MEDS ORDERED: VANCOMYCIN HCL 1,000 MG in SODIUM CHLORIDE 0.9% 500 ML IV ONE (16:57)
[2018-10-07] MEDS ORDERED: PIPERACILLIN/TAZOBACTAM 4.5 GM/120 ML BAG IV ONE (16:57)
[2018-10-07] MEDS ORDERED: PIPERACILL/TAZOBAC CONSULT ACTIVE PRN (16:57)
[2018-10-07] MEDS ORDERED: AZITHROMYCIN 500 MG in DEXTROSE 5% 250 ML IV STA (16:57)
[2018-10-07] MEDS ORDERED: VANCOMYCIN CONSULT ACTIVE PRN (16:57)
[2018-10-07 17:13] LABS: Albumin Globulin Ratio 0.8 (0.9-2); Alkaline Phosphatase 55 U/L (45-117); Globulin 3.9 gm/dl (2.5-4.0)
[2018-10-07] MEDS ORDERED: SODIUM CHLORIDE 0.9% 1000ML 1,000 ML IV ONE (17:29)
--- NOTE | 2018-10-07 18:14 | Emergency Department Note ---
Entered by Leanne Marin acting as a scribe for Fan Bedoya MD History of Present Illness General Chief complaint: Weakness Stated complaint: WEAKNESS Time Seen by Provider: 10/07/18 15:50 Source: patient Mode of arrival: EMS Limitations: no limitations History of Present Illness Onset (ago): day(s) 2 Radiation: non-radiation Pain Consistency: + constant Relieved By: + none Exacerbated By: + none Associated symptoms: no chest pain, no cough, no fever/chills and no shortness of breath Treatments prior to arrival: none The patient is an 88 year old white male w/ PMHx CAD, chronic anemia, BPH, HTN, and prostate cancer who presents to the ED w/ CC of weakness beginning a few days 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 Nursing states the patient was seen here in the hospital last week for possible stroke symptoms. He was discharged home and has been weak and lethargic for the past day. He stopped eating earlier today, so his called EMS. The patient denies any recent cough, fever or chills. He denies any shortness of breath or chest pain. His BSG was 83 in the field and his O2 was in the low 90's on room air. He does still live at home with his . Home Medications Home Medications Medication Instructions Recorded Confirmed Type multivitamin 1 tab PO DAILY 03/18/18 10/07/18 History omeprazole 20 mg PO DAILY 03/18/18 10/07/18 History mirtazapine 15 mg PO QPM 09/28/18 10/07/18 History amoxicillin-pot clavulanate 1 tab PO BIDM 5 Days #10 tab 10/03/18 10/07/18 Rx lisinopril [Zestril] 5 mg PO DAILY 30 Days #30 tab 10/03/18 10/07/18 Rx metoprolol succinate 25 mg PO QAM 30 Days #30 tab 10/03/18 10/07/18 Rx albuterol sulfate 3 ml CONTINUOUS NEBULIZATION Q4H 10/07/18 10/07/18 History PRN benzonatate 100 mg PO TID 10/07/18 10/07/18 History calcium carbonate [Calcium 500] 500 mg PO UD 10/07/18 10/07/18 History ondansetron HCl 4 mg PO UD PRN 10/07/18 10/07/18 History Allergies Allergy/AdvReac Type Severity Reaction Status Date / Time No Known Allergies Allergy Unknown Verified 10/07/18 16:40 Past Med/Surg History Medical History Prostate cancer (Resolved) 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 Chronic anemia (Chronic) Pernicious anemia (Chronic) Right acoustic neuroma (Chronic) BPH (benign prostatic hyperplasia) (Chronic) 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 and A total of 10 systems reviewed and were otherwise negative Physical Exam Vital Signs Vital Signs - 24 hr 10/07/18 15:38 10/07/18 15:57 10/07/18 16:04 Temperature 37.4 C Temperature Source Oral Sepsis Recent Fever Within 48 Hours No Sepsis New/Unexplained Change in Mental Status No Sepsis Action Taken by Nursing No Action Required Pulse Rate 87 Pulse Rate [Apical] 89 Pulse Rate from SpO2 Sensor Pulse Rhythm Regular Pulse Rhythm [Apical] Respiratory Rate 32 H 30 H Respiratory Effort / Characteristics Non-Labored Respiratory Depth Normal Respiratory Pattern Blood Pressure 116/75 Blood Pressure [Right Arm] 141/85 H Blood Pressure Mean 88 Blood Pressure Mean [Right Arm] 103 Blood Pressure Position Sitting Blood Pressure Position [Right Arm] Lying Pulse Oximetry 89 L 94 95 Oxygen Delivery Method Room Air Nasal Cannula Nasal Cannula Oxygen Flow Rate 2 2 10/07/18 16:08 10/07/18 16:14 10/07/18 16:30 Temperature Temperature Source Sepsis Recent Fever Within 48 Hours Sepsis New/Unexplained Change in Mental Status Sepsis Action Taken by Nursing Pulse Rate 91 H 83 82 Pulse Rate [Apical] 81 Pulse Rate from SpO2 Sensor 91 H 83 81 Pulse Rhythm Pulse Rhythm [Apical] Regular Respiratory Rate 28 H 29 H 20 Respiratory Effort / Characteristics Non-Labored Respiratory Depth Normal Respiratory Pattern Blood Pressure 141/85 H 143/79 H Blood Pressure [Right Arm] 143/79 H Blood Pressure Mean 103 100 Blood Pressure Mean [Right Arm] 100 Blood Pressure Position Blood Pressure Position [Right Arm] Sitting Pulse Oximetry 94 94 100 Oxygen Delivery Method Nasal Cannula Oxygen Flow Rate 2 2 2 10/07/18 16:31 10/07/18 17:00 10/07/18 17:01 Temperature Temperature Source Sepsis Recent Fever Within 48 Hours Sepsis New/Unexplained Change in Mental Status Sepsis Action Taken by Nursing Pulse Rate 82 85 85 Pulse Rate [Apical] Pulse Rate from SpO2 Sensor 82 85 86 Pulse Rhythm Pulse Rhythm [Apical] Respiratory Rate 28 H 28 H 28 H Respiratory Effort / Characteristics Respiratory Depth Respiratory Pattern Blood Pressure 143/83 H 131/78 Blood Pressure [Right Arm] Blood Pressure Mean 103 95 Blood Pressure Mean [Right Arm] Blood Pressure Position Blood Pressure Position [Right Arm] Pulse Oximetry 99 96 95 Oxygen Delivery Method Oxygen Flow Rate 2 2 2 10/07/18 17:30 10/07/18 17:31 10/07/18 18:00 Temperature Temperature Source Sepsis Recent Fever Within 48 Hours Sepsis New/Unexplained Change in Mental Status Sepsis Action Taken by Nursing Pulse Rate 87 86 Pulse Rate [Apical] 84 Pulse Rate from SpO2 Sensor 86 86 Pulse Rhythm Pulse Rhythm [Apical] Regular Respiratory Rate 29 H 28 H 24 Respiratory Effort / Characteristics Non-Labored Respiratory Depth Normal Respiratory Pattern Regular Blood Pressure 133/76 Blood Pressure [Right Arm] 142/83 H Blood Pressure Mean 95 Blood Pressure Mean [Right Arm] 102 Blood Pressure Position Blood Pressure Position [Right Arm] Sitting Pulse Oximetry 96 96 94 Oxygen Delivery Method Nasal Cannula Oxygen Flow Rate 2 GENERAL: Patient is thin and cachectic in appearance. EYE EXAM: Normal conjunctiva. PERRL, no anisocoria and EOM's grossly intact w/o pain. OROPHARYNX: Dry mucus membranes. Grossly normal dentition. NECK: Supple, no nuchal rigidity, no adenopathy, non-tender. no signs of meningismus. LUNGS: Clear to auscultation. Normal chest wall mechanics. HEART: NSR, no MRG. ABDOMEN: Well healed abdominal incisional scars, no fluctuance, no overlying skin changes, nontender. Normo-active bowel sounds, no rebound or guarding. BACK: No CVA TTP. SKIN: No rashes and no bruising. UPPER EXTREMITIES: Upper extremities are grossly normal. LOWER EXTREMITIES: No pitting edema. No calf pain. NEURO EXAM: A&O x3, cranial nerves II-XII grossly intact, normal speech, moves all 4 extremities on command w/o issue. Course 1552: The patient was evaluated in room C7 and a complete history and physical were performed. 1715: I reevaluated the patient. He is resting comfortably. I discussed my recommendation he remain in the hospital for further evaluation and management and he verbalized complete understanding and agreement. 1730: I discussed the patients case with Danyell Tabares Hospitalist. The patient will be further evaluated. Consultations Consultation #1: I discussed the patients case with D[facility]. The patient will be further evaluated. Time: 17:30 Administered Medications Azithromycin 500 mg/ Dextrose 255 mls @ 127.5 mls/hr IV NOW STA Stop: 10/07/18 18:56 Last Admin: 10/07/18 18:01 Dose: 127.5 mls/hr Documented by: [id number] Sodium Chloride (Nss 1000ml) 1,000 mls @ 999 mls/hr IV .Q1H1M ONE Stop: 10/07/18 18:29 Last Admin: 10/07/18 17:41 Dose: 999 mls/hr Documented by: [id number] Discontinued Medications Albuterol (Duoneb) 6 ml NEB NOW STA Stop: 10/07/18 15:58 Last Admin: 10/07/18 16:22 Dose: 6 ml Documented by: [id number] Sodium Chloride (Nss 1000ml) 1,000 mls @ 999 mls/hr IV .Q1H1M GIRMA Stop: 10/07/18 17:00 Last Infusion: 10/07/18 17:01 Dose: 0 mls/hr Documented by: [id number] Admin: 10/07/18 16:00 Dose: 999 mls/hr Documented by: [id number] Piperacillin Sod/Tazobactam Sod (Zosyn) 4.5 gm in 120 mls @ 240 mls/hr IV NOW ONE Stop: 10/07/18 17:26 Last Infusion: 10/07/18 17:51 Dose: 0 mls/hr Documented by: [id number] Admin: 10/07/18 17:21 Dose: 240 mls/hr Documented by: [id number] Ondansetron HCl (Zofran) 4 mg IV NOW STA Stop: 10/07/18 16:27 Last Admin: 10/07/18 16:31 Dose: 4 mg Documented by: [id number] Medical Decision Making Medical Records Attestation: I reviewed the patient's medical records. Home Medications Current Medication List: was personally reviewed by me Laboratory Data Attestation: I reviewed the patient's lab results. Result diagrams: 10/07/18 16:02 10/07/18 16:02 Lab Results 10/07/18 10/07/18 10/07/18 Range/Units 16:02 16:02 16:02 WBC 15.45 H (4.8-10.8) K/uL RBC 3.46 L (4.7-6.1) M/uL Hgb 11.7 L (14.0-18.0) g/dL Hct 34.6 L (42-52) % MCV 100.0 (80-100) fL MCH 33.8 (25-34) pg MCHC 33.8 (32-36) g/dL RDW Std Deviation 60.9 H (36.4-46.3) fL RDW Coeff of Jose 17.3 H (11.5-14.5) % Plt Count 291 (130-400) K/uL MPV 10.1 (7.4-10.4) fL Immature Gran % (Auto) 0.5 % Neut % (Auto) 89.0 % Lymph % (Auto) 5.2 % Summers % (Auto) 5.2 % Eos % (Auto) 0.0 % Baso % (Auto) 0.1 % Immature Gran # (Auto) 0.08 H (0.00-0.02) K/uL Neut # (Auto) 13.75 H (1.4-6.5) K/uL Lymph # (Auto) 0.80 L (1.2-3.4) K/uL Summers # (Auto) 0.81 H (0.11-0.59) K/uL Eos # (Auto) 0.00 (0-0.5) K/uL Baso # (Auto) 0.01 (0-0.2) K/uL Absolute Nucleated RBC 0.04 H (0-0) K/uL Nucleated RBC % (auto) 0.3 % PT 13.0 H (9.0-12.0) Seconds INR 1.3 H (0.9-1.1) Sodium 144 (136-145) mmol/L Potassium 4.5 (3.5-5.1) mmol/L Chloride 108 H (98-107) mmol/L Carbon Dioxide 29 (21-32) mmol/L Anion Gap 7.0 (3-11) BUN 68 H (7-18) mg/dl Creatinine 1.92 H (0.6-1.4) mg/dl Est Cr Clr Drug Dosing Not Reportable Est GFR ( Amer) 35.2 Est GFR (Non-Af Amer) 30.4 BUN/Creatinine Ratio 35.7 H (10-20) Glucose 78 (70-99) mg/dl Calcium 9.2 (8.5-10.1) mg/dl Magnesium 2.9 H (1.8-2.4) mg/dl Total Bilirubin 1.0 (0.2-1) mg/dl AST 39 H (15-37) U/L ALT 16 (12-78) U/L Alkaline Phosphatase 55 (45-117) U/L Troponin I 1.320 H* (0-0.045) ng/ml Total Protein 7.0 (6.4-8.2) gm/dl Albumin 3.1 L (3.4-5.0) gm/dl Globulin 3.9 (2.5-4.0) gm/dl Albumin/Globulin Ratio 0.8 L (0.9-2) TSH 1.110 (0.300-4.500) uIu/ml Imaging Data Radiologist's Impression: Radiology results as stated below per my review and th e radiologist's interpretation: XR chest 1V portable CLINICAL HISTORY: weakness COMPARISON STUDY: Chest radiograph September 28, 2018. FINDINGS: There is no pneumothorax. There is a suspected small left pleural effusion. Right infrahilar opacity has improved since exam of September 28, 2018. There has been interval development of left basilar consolidation. There is no evidence for pulmonary edema. Patient is rotated. IMPRESSION: Interval development of left basilar opacity which favors pneum onia. Radiographic follow-up to ensure resolution is recommended. Electronically signed by: Nico Rosa M.D. 10/07/2018 4:46 PM ECG Data Attestation: I personally reviewed and interpreted this ECG as follows: Indication: weakness Rate (beats per minute): 90 Rhythm: normal sinus Findings: + other (Wide QRS), + RBBB and + T-wave inversion (anterior leads and AVL) Blood Pressure Blood Pressure Findings: Normal blood pressure Blood Pressure Disposition: did not require urgent referral MDM Narrative Ancillary records reviewed/Prior records reviewed. Triage nursing summary reviewed. 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 Differential Diagnosis includes but is not limited to dehydration, stroke, anemia, hypoglycemia, hyponatremia, hypernatremia, urinary tract infection, pneumonia, bronchitis, sepsis, gastroenteritis, additional abdominal pathology, metabolic abnormalities and infections. Patient was seen and evaluated the bedside. The patient did present for increasing weakness. The patient did have a recent admission with concern for NSTEMI and pneumonia. The patient did have blood work completed patient does not have any focal neuro deficits does appear to move all extremities without issue patient is intact no anisocoria and the patient answers questions appropriately. Patient's blood work did show concern for elevated troponin but it appears that it is been elevated in the past. The patient was requiring a little bit of supplemental oxygen. The patient does have a likely left lower lobe pneumonia. He also has associated AK I with a baseline creatinine of 0.9 today is 1.9. The patient was given additional IV fluids. Given the patient's recent admission will be treated for a possible healthcare associated pneumonia and was covered with broad-spectrum antibiotics including vancomycin Zosyn and azithromycin. I did update the patient on the findings and the patient is agreeable to admissi on. I did speak with the on-call hospitalist who agreed to further evaluate treat the patient. Patient was admitted to the medicine service. Impression & Plan Acute respiratory failure with hypoxia, Elevated troponin, Dehydration, DIOGENES (acute kidney injury), Pneumonia Critical Care Time I have personally spent greater than 40 minutes of critical care time in direct management of this patient. This includes bedside care, interpretation of diagnostic studies, and testing, discussion with consultants, patient, and family members, and other require inpatient management activities. This 40 debby steve is in excess of all separately billable procedures. Critical Care Time: Yes Total Critical Care Time: 40 Discharge Plan Visit Data Chief Complaint: Weakness Stated Complaint: WEAKNESS ED Provider: Fan Bedoya Discharge Problem: Acute respiratory failure with hypoxia, Elevated troponin, Dehydration, DIOGENES (acute kidney injury), Pneumonia Forms Stand Alone Forms: My [facility] Prescriptions Prescriptions: No Action albuterol sulfate 2.5 mg /3 mL (0.083 %) solution for nebulization 3 ml continuous nebulization Q4H PRN (Reason: Shortness Of Breath Or Wheezing) RF: 0 benzonatate 100 mg capsule 100 mg PO TID RF: 0 ondansetron HCl 4 mg tablet 4 mg PO UD PRN (Reason: Nausea And Vomiting) RF: 0 calcium carbonate [Calcium 500] 500 mg calcium (1,250 mg) Tablet 500 mg PO UD RF: 0 multivitamin Tablet 1 tab PO DAILY RF: 0 omeprazole 20 mg Capsule,Delayed Release(Dr/Ec) 20 mg PO DAILY RF: 0 mirtazapine 15 mg tablet 15 mg PO QPM RF: 0 lisinopril [Zestril] 5 mg Tablet 5 mg PO DAILY 30 Days Qty: 30 RF: 0 metoprolol succinate 25 mg Tablet Extended Release 24 Hr 25 mg PO QAM 30 Days Qty: 30 RF: 0 amoxicillin-pot clavulanate 500-125 mg Tablet 1 tab PO BIDM 5 Days Qty: 10 RF: 0 Discharge Problem: Pneumonia Qualifiers: Pneumonia type: due to unspecified organism Laterality: left Lung location: lower lobe of lung Qualified Code(s): J18.1 - Lobar pneumonia, unspecified organism The scribe's documentation has been prepared under my direction and personally reviewed by me in its entirety. I confirm that the note above accurately reflects all work, treatment, procedures, and medical decision making performed by me.
--- NOTE | 2018-10-07 18:35 | History & Physical Report ---
Date of Service October 07, 2018 Assessment & Plan (1) Acute respiratory failure with hypoxia: (2) Hospital acquired PNA: This is an 88yo M with a PMH of recent NSTEMI, anemia, h/o GIST and prostate cancer and other medical problems listed below who presents from home with generalized weakness and difficulty swallowing and was found to have interval development of pneumonia, troponin elevation and DIOGENES. -Continues to cough up phlegm. Denies any shortness of breath but was hypoxic at 89% on arrival, now saturating at 93% on 2 L -Chest x-ray with interval development of left basilar opacity which favors pneumonia -Also likely that patient is aspirating due to worsening dysphasia -Continue antibiotic coverage with Zosyn and Vanco -Duo nebs (3) Elevated troponin: H/o NSTEMI on previous admission -Initial troponin of 1.32 today, associated with new ST depression in septal leads -Seen by cardiology on previous admission, no invasive intervention was recommended due to patient's age and comorbidities -Denies any chest pain currently. Will trend troponin overnight, monitor on telemetry -Echo from last admission with EF 40-45%, grade I diastolic dysfunction -Routine cardiology consult for further discussion of goals of care (4) DIOGENES (acute kidney injury): Likely prerenal in setting of poor p.o. intake -Creatinine of 1.92 (baseline ~1.1) -Gentle fluids, avoid nephrotoxic agents when able -Repeat BMP in a.m. (5) Dysphagia: Increased difficulty swallowing since discharge home 2 days ago -Speech evaluation ordered (6) Pernicious anemia: Has been receiving B12 and procrit injections as an outpatient -Hgb at baseline of 11.7 (7) Severe protein-calorie malnutrition: Failure to thrive -Will start with clears per patient preference and advance diet as tolerated DVT Ppx: SCDs Code status: DNR per discussion with family PCP: Joshua Dispo: Admitted to telemetry. Discharge planning ordered. Palliative care consult placed. Patient seen in collaboration with Dr. Rg. Please see addendum. History of Present Illness Chief Complaint: Weakness, difficulty swallowing Primary Care Provider: Ramiro Lewis MD This is an 88yo M with a PMH of recent NSTEMI, anemia, h/o GIST and prostate cancer and other medical problems listed below who presents from home with generalized weakness and difficulty swallowing. Patient was recently admitted to our service in September for sepsis 2/2 PNA as well as failure to thrive. During admission, was also found to have an NSTEMI and IV heparin was given. Was seen by cardiology service and no invasive intervention was recommended due to age and comorbidities. Was discharged home on 10/03 on a 10 day course of Augmentin and set up with services. Two days later, per daughter, patient began to look more fatigued and weak. He is able to ambulate with walker but only to the bathroom and back before he needs to rest. Has not been eating well at home and has difficulty swallowing, spitting most of the food back up. Can only tolerate foods like [place] ice. Also continues to cough up phlegm. Denies any fever or chills. No chest pain or SOB. Family had a discussion with home health nurse about pursuing Hospice last night but no formal plans have been made. When patient continued to have difficulty eating today, his was brought back to ED for evaluation. Was initially hypoxic at 89% on room air and is now 93% on 2L. Does not require home O2. CXR with interval development of left basilar opacity which favors pneumonia. Troponin is elevated at 1.32. Cr is 1.92 (baseline 1.1). Was given a dose of Vanc, Zosyn and Azithromycin in the ED along with 2L NSS. Will be admitted for continued antibiotic therapy, telemetry monitoring and further discussion of care. Allergies Allergy/AdvReac Type Severity Reaction Status Date / Time No Known Allergies Allergy Unknown Verified 10/07/18 16:40 Home Medications Home Medications Medication Instructions Recorded Confirmed Type multivitamin 1 tab PO DAILY 03/18/18 10/07/18 History omeprazole 20 mg PO DAILY 03/18/18 10/07/18 History mirtazapine 15 mg PO QPM 09/28/18 10/07/18 History lisinopril [Zestril] 5 mg PO DAILY 30 Days #30 tab 10/03/18 10/07/18 Rx metoprolol succinate 25 mg PO QAM 30 Days #30 tab 10/03/18 10/07/18 Rx albuterol sulfate 3 ml CONTINUOUS NEBULIZATION Q4H 10/07/18 10/07/18 History PRN benzonatate 100 mg PO TID 10/07/18 10/07/18 History calcium carbonate [Calcium 500] 500 mg PO UD 10/07/18 10/07/18 History ondansetron HCl 4 mg PO UD PRN 10/07/18 10/07/18 History Past Med/Surg History Medical History Severe protein-calorie malnutrition (Chronic) NSTEMI (non-ST elevated myocardial infarction) (Resolved) Prostate cancer (Resolved) 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 Chronic anemia (Chronic) Pernicious anemia (Chronic) Right acoustic neuroma (Chronic) BPH (benign prostatic hyperplasia) (Chronic) 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) CAD (coronary artery disease) (Chronic) Dyslipidemia (Chronic) HTN (hypertension) (Chronic) Family History Brother Lung cancer Brother Colorectal cancer Father Hypertension Social History Preferred Language: Polish Communication Ability: Effective Dock Associate Required: No Beliefs That Will Affect Care: None Current Living Situation: Spouse Feels Safe at Home: Yes Safety Concerns: Feels Safe At This Time Smoking Status: Never smoker Do You Dip or Chew Tobacco: No Hx Alcohol Use: No Hx Substance Use: No Review of Systems Review of Systems: At least ten systems reviewed and negative except as noted in the HPI. Physical Exam Physical Exam: General Appearance: Elderly cachectic man with temporal wasting, chronically ill appearance Head: normocephalic, atraumatic Eyes: normal inspection, PERRL, EOMI ENT: hearing grossly normal, pharynx normal (dry mucous membranes) Neck: supple, no JVD, no adenopathy Respiratory/Chest: Left lung base with crackles, otherwise clear. No wheezes or rhonci. No respiratory distress or accessory muscle use Cardiovascular: regular rate, rhythm, no murmur, normal peripheral pulses Abdomen/GI: normal bowel sounds, soft, non-tender to palpation. R lower abdominal wall with non-tender small nodules (known) Extremities/Musculoskelatal: normal inspection, no calf tenderness, normal capillary refill, no pedal edema Neurologic/Psych: alert, normal mood/affect, oriented x 3 Skin: normal color, warm/dry Results & Data Vital Signs (Past 12 Hours) Vital Signs Temp Pulse Pulse Resp BP BP Pulse Ox 10/07/18 18:30 83 25 H 155/89 H 93 10/07/18 18:00 84 24 142/83 H 94 10/07/18 17:31 86 28 H 133/76 96 10/07/18 17:30 87 29 H 96 10/07/18 17:01 85 28 H 131/78 95 10/07/18 17:00 85 28 H 96 10/07/18 16:31 82 28 H 143/83 H 99 10/07/18 16:30 82 20 100 10/07/18 16:14 83 81 29 H 143/79 H 143/79 H 94 10/07/18 16:08 91 H 28 H 141/85 H 94 10/07/18 16:04 95 10/07/18 15:57 89 30 H 141/85 H 94 10/07/18 15:38 37.4 C 87 32 H 116/75 89 L Laboratory Results Short CBC 10/07/18 Range/Units 16:02 WBC 15.45 H (4.8-10.8) K/uL Hgb 11.7 L (14.0-18.0) g/dL Hct 34.6 L (42-52) % Plt Count 291 (130-400) K/uL BMP 10/07/18 16:02 Sodium 144 Potassium 4.5 Chloride 108 H Carbon Dioxide 29 BUN 68 H Creatinine 1.92 H Glucose 78 Calcium 9.2 Cardiac Enzymes 10/07/18 Range/Units 16:02 Troponin I 1.320 H* (0-0.045) ng/ml Liver Function 10/07/18 Range/Units 16:02 Total Bilirubin 1.0 (0.2-1) mg/dl AST 39 H (15-37) U/L ALT 16 (12-78) U/L Alkaline Phosphatase 55 (45-117) U/L Albumin 3.1 L (3.4-5.0) gm/dl Diagnostic Findings CXR: IMPRESSION: Interval development of left basilar opacity which favors pneumonia. Radiographic follow-up to ensure resolution is recommended. ECG Additional Comments: SR with known trifascicular block, new septal ST depre ssions Supervising Physician Co-Signing Physician Notes I have seen and examined the patient and have discussed the case with the provider above. I agree with the assessment and plan as stated with the following exceptions. Mr. Luis was recently admitted and treated for pneumonia, which is still present. However, he isn't coughing or reporting worsening fevers or chills. His weakness and concern for progressive dysphagia brought him back in today. He is not in respiratory distress and is using 2L ooxygen supplementation. His lungs are clear to auscultation but this is a limted exam as he was not taking deep breaths. Heart exam was normal and no edema was present. Abdomen was soft and nontender. Goals of care briefly discussed and the patient and family do not want to be agressive with workup or treatment. Plan to trend trops and consult Cards to see in am. EKG changes consistent with septal infartc. Cont per plan above. Arcenio, DO Active issues: L pneumonia Luekocytosis h/o prostate CA severe protein calorie malnutrition dementia h/o GIST DIOGENES
[2018-10-07] MEDS ORDERED: ACETAMINOPHEN 325 MG TAB PO PRN (20:09)
[2018-10-07] MEDS ORDERED: ALBUT/IPRATROP 3MG/0.5MG NEB 3 ML VIAL NEB PRN (20:16)
[2018-10-07] MEDS: ALBUT/IPRATROP 3MG/0.5MG NEB 3 ML VIAL NEB SCH (20:23)
[2018-10-07] MEDS: MIRTAZAPINE TAB 15 MG TAB PO SCH (21:10)
[2018-10-07] MEDS: BENZONATATE 100 MG CAPSULE PO SCH (21:11)
--- NOTE | 2018-10-07 21:24 | Pharmacy Report ---
Pharmacy Abx Initial Consult - Date of Service October 07, 2018 - Pharmacy Dosing Scope Date of Consult: 5-4 Consultation requested by: Dr. Rg Pharmacy is consulted to initiate vancomycin/zosyn dosing therapy, order appropriate labs and adjust drug dose/frequency. - Subjective The patient is a 88 year old M admitted on 10/07/18 18:23. - Objective Height: 5 ft 5 in Weight: 40.3 kg Lab Results (24hrs): Laboratory Tests (24 Hours) 10/07/18 10/07/18 16:02 16:02 WBC 15.45 H Neut # (Auto) 13.75 H Creatinine 1.92 H Est Cr Clr Drug Dosing Not Reportable Micro Results: 10/07/18 17:12 Blood Culture - Pending Blood 10/07/18 17:06 Blood Culture - Pending Blood - Risk Factors for Resistance * Hospitalization for 48 hours or more within the past 90 days * Immunocompromised (prostate cancer) * Antimicrobial use within the last 90 days [augmentin on med list] - Assessment & Plan Assessment/Plan: Patient started on vancomycin and zosyn for possible pneumonia. (likely aspiration). Blood cultures x 2 are pending. PMHx significant for prostate cancer, anemia Vancomycin: * Patient received loading dose of vancomycin 1000 mg (~25 mg/kg) iv x 1 this evening in the ED * Patient with very small body weight - nurse verified that weight is entered correctly * Estimated kinetics: t1/2>24 hrs, ke~0.016 hr-1, CrCl ~15 ml/min * Due to t1/2 greater than 24 hrs, patient with DIOGENES on admission will hold further doses of vancomycin and collect a random in the am to assist with further dosing of vancomycin. Anticipate level to remain therapeutic >15 mcg/ml until tomorrow (goal 15-20 mcg/ml for pneumonia) Zosyn: * 4.5 gm x 1 given in ED - start 3.375 gm iv q 12 hrs (appropriate for CrCl <20 ml/min) Pharmacy will continue to follow and will adjust dose/frequency as necessary. Thank you.
[2018-10-07 21:45] LABS: Appearance Urine Clear (Clear); Bacteria Urine Automated Negative (Negative); Bilirubin Urine Negative (Negative); Blood Urine Negative (Negative); Color Urine Yellow; Glucose Urine UA Negative (Negative); Ketones Urine 1+ (Negative); Leukocyte Esterase Urine Negative (Negative); Nitrite Urine Negative (Negative); Protein Urine Trace (Negative); Specific Gravity Urine 1.025 (1.000-1.030); Urobilinogen Urine Negative (Negative)
[2018-10-08] MEDS: PIPERACILLIN/TAZOBACTAM 3.375 GM in DEXTROSE 5% 100 ML IV SCH ×2 (01:28→13:24)
[2018-10-08 04:39] LABS: Hematocrit (blood only) 33.5 % (42-52); Hemoglobin 11.2 g/dL (14.0-18.0); Mean Corpuscular Hgb Conc 33.4 g/dL (32-36); Mean Corpuscular Volume 101.5 fL (80-100); Mean Platelet Volume 10.3 fL (7.4-10.4); Platelet Count 267 K/uL (130-400); RDW Coefficient of Variation 17.3 % (11.5-14.5); RDW Standard Deviation 62.3 fL (36.4-46.3); White Blood Count 13.26 K/uL (4.8-10.8)
[2018-10-08 04:56] LABS: BUN Creatinine Ratio 31.1 (10-20); Calcium 8.5 mg/dl (8.5-10.1); Creatinine Clr Calc Pharmacy 16.9 ml/min; Est GFR (African American) 40.2; Est GFR (Non-African American) 34.7; Potassium 3.9 mmol/L (3.5-5.1)
[2018-10-08 05:01] LABS: Troponin I 1.34 ng/ml (0-0.045)
[2018-10-08] MEDS: ALBUT/IPRATROP 3MG/0.5MG NEB 3 ML VIAL NEB SCH (07:33)
[2018-10-08] MEDS: PANTOprazole 40 MG TAB PO SCH (08:45)
[2018-10-08] MEDS: BENZONATATE 100 MG CAPSULE PO SCH ×3 (08:46→20:02)
[2018-10-08] MEDS ORDERED: VANCOMYCIN HCL 500 MG in SODIUM CHLORIDE 0.9% 250 ML IV ONE (09:00)
--- NOTE | 2018-10-08 09:07 | Pharmacy Report ---
Pharmacy Abx Dose Short Note - Date of Service October 08, 2018 - Assessment & Plan Assessment 88 year old M receiving Vancomycin and Zosyn for treatment of HCAP with likely aspiration. Day # 2 of antimicrobial therapy. Laboratory Tests 10/08/18 04:30 Random Vancomycin 15.4 Plan Vancomycin * Random level is lower than anticipated this AM. Minor improvement in renal function over night, but calculated half-life is still >24 hours. * Will give Vancomycin 500mg (13 mg/kg) IV x1 dose today and collect another random in the AM for further dosing guidance. * Goal trough : 15 to 20 mcg/mL Pharmacy will continue to follow and will adjust dose/frequency as necessary. Thank you.
--- NOTE | 2018-10-08 09:57 | Hospitalist Progress Note ---
Date of Service October 08, 2018 Assessment & Plan (1) Acute respiratory failure with hypoxia: (2) Hospital acquired PNA: This is an 88yo M with a PMH of recent NSTEMI, anemia, h/o GIST and prostate cancer and other medical problems listed below who presents from home with generalized weakness and difficulty swallowing and was found to have interval development of pneumonia, troponin elevation and DIOGENES. -Continues to cough up phlegm. Denies any shortness of breath but was hypoxic at 89% on arrival, now saturating at 93% on 2 L -Chest x-ray with interval development of left basilar opacity which favors pneumonia -Also likely that patient is aspirating due to worsening dysphasia -Continue antibiotic coverage with Zosyn and Vanco -Duo nebs -DC Tele, DC when WBCs are closer no normal (3) Elevated troponin: H/o NSTEMI on previous admission -Maximize Medical Therapy (4) DIOGENES (acute kidney injury): Likely prerenal in setting of poor p.o. intake -Creatinine today 1.72 (baseline ~1.1) -Gentle fluids, avoid nephrotoxic agents when able (5) Dysphagia: Increased difficulty swallowing since discharge home 2 days ago -Speech evaluation ordered (6) Pernicious anemia: Has been receiving B12 and procrit injections as an outpatient -Hgb at baseline (7) Severe protein-calorie malnutrition: Failure to thrive -Will start with clears per patient preference and advance diet as tolerated DVT Ppx: SCDs Code status: DNR per discussion with family PCP: Joshua Dispo: DC telemetry. Discharge planning ordered. Palliative care consult placed. ROS-No Headache, No Visual Changes, No Nausea, No Vomiting, No Fever, No Chills, No Neck Pain or Stiffness, No Chest Pain, No Palpitations, No SOB, No BRANCH, No Cough, No Sputum, No Wheezing, No Abdominal Pain, No Diarrhea, No Hematemesis, No Hemoptysis, No Unexpected Weight Loss, No Flank pain, No Melena, No Hematochezia, No Frequency, No Urgency, No Burning, No Hematuria, No Rashes, No Diaphoresis. Appetite is Normal, Feeling better Physical Exam Gen-AAO x 3, NAD, Afebrile Head-NCAT, EOMI, PERRLA, Anicteric Sclera, No Posterior Pharyngeal Erythema Neck-Supple, No JVD, No Thyromegaly, No Masses, No LAD, No Bruits Lungs-Clear to Auscultation Bilaterally, No Rales, No Rhonchi, No Wheezing, No Crepitus Chest-No S4, +S1, +S2, No S3, No Murmurs, No Rubs, No Gallops, No Ectopy Abdomen-Soft, Bowel Sounds Present, Non Tender, Non Distended, No Hepatomegaly, No Splenomegaly, No Palpable Masses, No Rebound, No Rigidity, No Guarding Musculoskeletal-Full Range of Motion Bilaterally, No CVAT Extremities-No Cyanosis, No Clubbing, No Edema Nuero-Cranial Nerves II-XII grossly intact, Motor WNL, DTRs WNL, Strength WNL, Non Focal Psych-Normal Mood Results & Data Vital Signs (Past 12 Hours) Vital Signs Temp Pulse Pulse Resp BP Pulse Ox 10/08/18 07:33 62 16 86 L 10/08/18 07:20 36.7 C 73 18 148/81 H 93 10/08/18 02:51 37.0 C 77 16 133/70 95 10/08/18 00:00 36.6 C 78 18 150/74 H 94 Current Diagnoses Vitamin B12 deficiency anemia due to intrinsic factor deficiency (10/07/18) Unspecified severe protein-calorie malnutrition (10/07/18) Pneumonia, unspecified organism (10/07/18) Acute respiratory failure with hypoxia (10/07/18) Acute kidney failure, unspecified (10/07/18) Dysphagia, unspecified (10/07/18) Abnormal levels of other serum enzymes (10/07/18) Allergies No Known Allergies Allergy (Unknown, Verified 10/07/18 16:40) Height/Weight/Isolation Height 5 ft 5 in Weight 39.7 kg Chemistry 10/07/18 10/08/18 16:02 04:30 Sodium 144 144 Potassium 4.5 3.9 Chloride 108 H 110 H Carbon Dioxide 29 29 Anion Gap 7.0 5.0 BUN 68 H 53 H Creatinine 1.92 H 1.72 H Glucose 78 92 Urinalysis 10/07/18 21:30 Urine Color Yellow Urine Appearance Clear Urine pH 5.0 Ur Specific [place] 1.025 Urine Protein Trace H Urine Glucose (UA) Negative Urine Ketones 1+ H Urine Blood Negative Urine Nitrite Negative Urine Bilirubin Negative Microbiology 10/07/18 17:12 Blood Blood Culture - Pending 10/07/18 17:06 Blood Blood Culture - Pending
[2018-10-08] MEDS: METOPROLOL SUCC 25MG EXT REL TAB PO SCH (12:35)
--- NOTE | 2018-10-08 15:38 | Cardiology Consultation ---
Date of Consultation October 08, 2018 Assessment & Plan (1) NSTEMI (non-ST elevated myocardial infarction): Reviewed the images of the patient's recent echocardiogram performed 09/29/2018. There is been concerned that perhaps this was consistent with a stress-induced cardiomyopathy in the setting of pneumonia, but on review of his past echocardiogram studies including a report of a study performed as an outpatient 2017 he is noted to have chronic akinesis of the left ventricular apex and apical anterior septum. Previously his ejection fraction in 2008 had been in the lower limit of normal. Reviewed the images of the study performed at [facility] June 2018, and I believe and apical wall motion of normality was there as well, and on the most recent echocardiogram last month, ongoing apical wall motion of normalities present with extension and resultant moderate LV systolic dysfunction. I believe the changes on the EKG noted yesterday as well as the mild troponin elevation noted on presentation is a remnant of the recent event. The patient is frail, his body mass index is calculated this admission is 14.6. He is intolerant of aspirin due to his past gastric surgery. Per review of his outpatient chart he has had a slow progressive decline in his health both p hysically and apparently from a cognitive perspective recently. At this time continue ongoing medication therapy with metoprolol succinate. I agree with holding off on statin therapy given his significant calorie deficient malnutrition. I had a discussion with his spouse regarding his prognosis, and possible transition to a palliative care strategy. We have ongoing discussions with the patient, spouse, and son notes that hospitalization progresses. History of Present Illness Attending Physician: Faraz Gordillo DO History of Present Illness Phan Luis is an 80-year-old male seen in cardiology consultation per the request of Dr. Gordillo for the evaluation of abnormal EKG and elevation in troponin I. 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 Freitas of our practice. 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 Patient has had several recent admissions. In June 2018 he was admitted for recurrent falls. More recently he was admitted last month from 09/28/2018 until 10/03/2018 having presented with chills and cough. He was treated for pneumonia, during that stay he was noted to have an initial mild elevation his troponin that peaked at 18.8 NG per mL on 09/29/2018. He was treated with unfractionated heparin for 48 hours for possible non-ST segment elevation microinfarction versus stress-induced cardiomyopathy. Per review of the records he denied any julee chest discomfort. Due to his age and generalized frailty, conservative therapy was recommended rather than invasive coronary angiography. The patient presented again yesterday with generalized weakness and difficulty swallowing. EKG performed upon arrival on 10/07/2018 at 1601 revealed normal sinus rhythm at 90 bpm with right bundle branch block, left anterior fascicular block pattern and age-indeterminate septal infarction pattern with new T wave inversions in the anterior precordial leads which are new compared to his EKG tracings from last month. Troponin was noted to be elevated at 1.32 yesterday and is trended to 1.47, and 1.34 thus far this hospital stay with most recent measurement at 430 this morning. These measurements have actually trended down compared to the 18.8 NG per mL measurement obtained on 09/29/2018. During my assessment of the patient, he had no complaints. His spouse, Crissy, who is actually a patient of mine was with him at the bedside. 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 He also has a history of prostate carcinoma diagnosed in 2009. Progressive weight loss has been noted. He saw GI for assessment of weight loss and poor appetite in June 2018 and weight 90 pounds at that time having weight 130 pounds in 2010, and a year ago he weighed 111 pounds. A PET scan in April 2018 revealed no FDG avid disease. Allergies Allergy/AdvReac Type Severity Reaction Status Date / Time No Known Allergies Allergy Unknown Verified 10/07/18 16:40 Home Medications Home Medications Medication Instructions Recorded Confirmed Type multivitamin 1 tab PO DAILY 03/18/18 10/07/18 History omeprazole 20 mg PO DAILY 03/18/18 10/07/18 History mirtazapine 15 mg PO QPM 09/28/18 10/07/18 History lisinopril [Zestril] 5 mg PO DAILY 30 Days #30 tab 10/03/18 10/07/18 Rx metoprolol succinate 25 mg PO QAM 30 Days #30 tab 10/03/18 10/07/18 Rx albuterol sulfate 3 ml CONTINUOUS NEBULIZATION Q4H 10/07/18 10/07/18 History PRN benzonatate 100 mg PO TID 10/07/18 10/07/18 History calcium carbonate [Calcium 500] 500 mg PO UD 10/07/18 10/07/18 History ondansetron HCl 4 mg PO UD PRN 10/07/18 10/07/18 History Patient History Medical History Severe protein-calorie malnutrition (Chronic) NSTEMI (non-ST elevated myocardial infarction) (Resolved) Prostate cancer (Resolved) 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 Chronic anemia (Chronic) Pernicious anemia (Chronic) Right acoustic neuroma (Chronic) BPH (benign prostatic hyperplasia) (Chronic) 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) CAD (coronary artery disease) (Chronic) Dyslipidemia (Chronic) HTN (hypertension) (Chronic) Family History Brother Lung cancer Brother Colorectal cancer Father Hypertension Social History Preferred Language: Faroese Communication Ability: Effective Marketing Sales Manager Required: No Beliefs That Will Affect Care: None marital status: Current Living Situation: Spouse Feels Safe at Home: Yes Safety Concerns: Feels Safe At This Time Smoking Status: Never smoker Do You Dip or Chew Tobacco: No Hx Alcohol Use: No Hx Substance Use: No Physical Exam Constitutional: + ill appearing (Chronically ill in appearance with no acute distress) and + cachectic Respiratory: No rales rhonchi or wheezing Cardiovascular: Rate/Rhythm: regular rate and regular rhythm Heart Sounds: no murmur Vessels: no JVD Extremities: no edema Gastrointestinal (Abdomen): Well-healed chronic surgical incision is noted over the abdomen soft and nontender on exam Skin: no rashes, warm and dry Neurologic: Patient does not provide significant history, follows commands, moves all 4 extremities. Results & Data Vital Signs (Past 12 Hours) Vital Signs Temp Pulse Pulse Resp BP Pulse Ox 10/08/18 11:52 36.9 C 76 18 141/79 H 98 10/08/18 07:33 62 16 86 L 10/08/18 07:20 36.7 C 73 18 148/81 H 93 Laboratory Results Cardiac Enzymes 10/07/18 10/07/18 10/08/18 Range/Units 16:02 22:02 04:30 AST 39 H (15-37) U/L Troponin I 1.320 H* 1.470 H* 1.340 H* (0-0.045) ng/ml Coagulation 10/07/18 Range/Units 16:02 PT 13.0 H (9.0-12.0) Seconds CBC 10/07/18 10/08/18 Range/Units 16:02 04:30 WBC 15.45 H 13.26 H (4.8-10.8) K/uL RBC 3.46 L 3.30 L (4.7-6.1) M/uL Hgb 11.7 L 11.2 L (14.0-18.0) g/dL Hct 34.6 L 33.5 L (42-52) % Plt Count 291 267 (130-400) K/uL Neut # (Auto) 13.75 H (1.4-6.5) K/uL Lymph # (Auto) 0.80 L (1.2-3.4) K/uL [place] # (Auto) 0.81 H (0.11-0.59) K/uL Eos # (Auto) 0.00 (0-0.5) K/uL Baso # (Auto) 0.01 (0-0.2) K/uL Comprehensive Metabolic Panel 10/07/18 10/08/18 Range/Units 16:02 04:30 Sodium 144 144 (136-145) mmol/L Potassium 4.5 3.9 (3.5-5.1) mmol/L Chloride 108 H 110 H (98-107) mmol/L Carbon Dioxide 29 29 (21-32) mmol/L BUN 68 H 53 H (7-18) mg/dl Creatinine 1.92 H 1.72 H (0.6-1.4) mg/dl Glucose 78 92 (70-99) mg/dl Calcium 9.2 8.5 (8.5-10.1) mg/dl AST 39 H (15-37) U/L ALT 16 (12-78) U/L Alkaline Phosphatase 55 (45-117) U/L Total Protein 7.0 (6.4-8.2) gm/dl Albumin 3.1 L (3.4-5.0) gm/dl Intake and Output 10/08/18 10/08/18 10/08/18 06:59 14:59 22:59 Intake Total 115 / 3010 680 / 680 Balance 115 / 3010 680 / 680 Intake: IV 115 / 3010 260 / 260 Zosyn 3.375 gm In D5 100 ml @ 115 / 115 28.75 mls/hr IV Q12H [facility] Rx#: [id number] Vancomycin HCl 500 mg In Nss 260 / 260 250 ml @ 125 mls/hr IV NOW ONE Rx#:[id number] Oral 420 / 420 Other: Other Intake Source sips # Unmeasured Voids 2 Weight 39.7 kg Patient Weight 10/09/18 06:59 Weight 39.7 kg Diagnostic Findings EKG performed today 10/08/2018 reviewed independently revealed normal sinus rhythm at 76 bpm with borderline first-degree AV block, right bundle branch block, left anterior fascicular block, septal/possible lateral infarct pattern, noted ongoing T wave inversion in lead V2, but this is resolved in lead V3.
[2018-10-08] MEDS: MIRTAZAPINE TAB 15 MG TAB PO SCH (20:02)
[2018-10-09] MEDS: PIPERACILLIN/TAZOBACTAM 3.375 GM in DEXTROSE 5% 100 ML IV SCH ×2 (01:42→16:20)
[2018-10-09 05:36] LABS: Hematocrit (blood only) 31.8 % (42-52); Hemoglobin 10.7 g/dL (14.0-18.0); Mean Corpuscular Hgb Conc 33.6 g/dL (32-36); Mean Corpuscular Volume 101.6 fL (80-100); Mean Platelet Volume 11.1 fL (7.4-10.4); Platelet Count 278 K/uL (130-400); RDW Coefficient of Variation 17.4 % (11.5-14.5); RDW Standard Deviation 63.1 fL (36.4-46.3); Red Blood Count 3.13 M/uL (4.7-6.1); White Blood Count 11.96 K/uL (4.8-10.8)
[2018-10-09 06:25] LABS: BUN Creatinine Ratio 33.2 (10-20); Calcium 8.7 mg/dl (8.5-10.1); Creatinine Clr Calc Pharmacy 21.2 ml/min; Est GFR (African American) 53.9; Est GFR (Non-African American) 46.5; Potassium 4.3 mmol/L (3.5-5.1)
--- NOTE | 2018-10-09 08:48 | Pharmacy Report ---
Pharmacy Abx Dose Short Note - Date of Service October 09, 2018 - Assessment & Plan Assessment 88 year old M receiving vancomycin/zosyn for treatment of HCAP Day # 3 of antimicrobial therapy. Plan Vancomycin * Trough level came back slightly subtherapeutic today at 11.6 mcg/ml (goal 15- 20 mcg/ml for pneumonia) * Scr continues to improve more today, from 1.72 to 1.35 mg/dL - baseline closer to 1.1 mg/dl * Will order vancomycin 750 mg (~18 mg/kg) x 1 for now, then order a random level in the morning to assist with further dosing * Estimated kinetics: t1/2 still >24 hrs, therefore estimated level still greater than 15 mcg/ml for tomorrow am * If closer to baseline Scr tomorrow, could consider starting maintenance regimen Zosyn: * 3.375 gm miv q 12 hrs (CrCl ~21 ml/min - trending up today, will ensure continued improvement before changing to Q8hr interval as CrCl is on border for dosage adjustment - CrCl <20 ) Pharmacy will continue to follow and will adjust dose/frequency as necessary. Thank you.
[2018-10-09] MEDS ORDERED: VANCOMYCIN HCL 750 MG in SODIUM CHLORIDE 0.9% 250 ML IV ONE (09:00)
[2018-10-09] MEDS: MULTIVITAMIN TAB PO SCH (09:12)
[2018-10-09] MEDS: PANTOprazole 40 MG TAB PO SCH (09:12)
[2018-10-09] MEDS: BENZONATATE 100 MG CAPSULE PO SCH ×3 (09:13→20:35)
[2018-10-09] MEDS: METOPROLOL SUCC 25MG EXT REL TAB PO SCH (09:13)
[2018-10-09] MEDS ORDERED: FAMOTIDINE 20MG/5ML IV PUSH IV STA (10:35)
--- NOTE | 2018-10-09 10:35 | Hospitalist Progress Note ---
Date of Service October 09, 2018 Assessment & Plan (1) Acute respiratory failure with hypoxia: (2) Hospital acquired PNA: This is an 88yo M with a PMH of recent NSTEMI, anemia, h/o GIST and prostate cancer and other medical problems listed below who presents from home with generalized weakness and difficulty swallowing and was found to have interval development of pneumonia, troponin elevation and DIOGENES. -Less cough. Denies any shortness of breath -Chest x-ray with interval development of left basilar opacity which favors pneumonia -Also likely that patient is aspirating due to worsening dysphasia -Continue antibiotic coverage with Zosyn and Vanco -Duo nebs -DC when WBCs are closer no normal, trending down nicely (3) Elevated troponin: H/o NSTEMI on previous admission -Maximize Medical Therapy Cards on case (4) DIOGENES (acute kidney injury): Likely prerenal in setting of poor p.o. intake -Gentle fluids, avoid nephrotoxic agents when able (5) Dysphagia: Increased difficulty swallowing since discharge home 2 days ago -Speech evaluation ordered GI to see (6) Pernicious anemia: Has been receiving B12 and procrit injections as an outpatient -Hgb at baseline (7) Severe protein-calorie malnutrition: Failure to thrive -Advance diet as tolerated DVT Ppx: SCDs Code status: DNR per discussion with family PCP: Joshua Dispo: DC telemetry. Discharge planning ordered. Palliative care consult placed. PT eval and treat ROS-No Headache, No Visual Changes, No Nausea, No Vomiting, No Fever, No Chills, No Neck Pain or Stiffness, No Chest Pain, No Palpitations, No SOB, No BRANCH, No Cough, No Sputum, No Wheezing, No Abdominal Pain, No Diarrhea, No Hematemesis, No Hemoptysis, No Unexpected Weight Loss, No Flank pain, No Melena, No Hematoch ezia, No Frequency, No Urgency, No Burning, No Hematuria, No Rashes, No Diaphoresis. Appetite is Normal, Feeling better Looks great today, Talkative. Physical Exam Gen-AAO x 3, NAD, Afebrile Head-NCAT, EOMI, PERRLA, Anicteric Sclera, No Posterior Pharyngeal Erythema Neck-Supple, No JVD, No Thyromegaly, No Masses, No LAD, No Bruits Lungs-Clear to Auscultation Bilaterally, No Rales, No Rhonchi, No Wheezing, No Crepitus Chest-No S4, +S1, +S2, No S3, No Murmurs, No Rubs, No Gallops, No Ectopy Abdomen-Soft, Bowel Sounds Present, Non Tender, Non Distended, No Hepatomegaly, No Splenomegaly, No Palpable Masses, No Rebound, No Rigidity, No Guarding Musculoskeletal-Full Range of Motion Bilaterally, No CVAT Extremities-No Cyanosis, No Clubbing, No Edema Nuero-Cranial Nerves II-XII grossly intact, Motor WNL, DTRs WNL, Strength WNL, Non Focal Psych-Normal Mood Results & Data Vital Signs (Past 12 Hours) Vital Signs Temp Pulse Resp BP Pulse Ox 10/09/18 07:50 36.2 C L 71 16 150/70 H 91 10/08/18 22:45 36.9 C 75 18 126/79 96
--- NOTE | 2018-10-09 11:10 | Gastrointestinal Consultation ---
Date of Consultation October 09, 2018 Assessment & Plan (1) GERD (gastroesophageal reflux disease): (2) History of gastrointestinal stromal tumor (GIST): (3) Dysphagia: (4) Failure to thrive: Pt is a 88 y/o male w hx of GIST s/p gastrectomy, previously treated w Gleevec, seen for dysphagia, GERD and FTT. He recently had NSTEMI and pneumonia. Appetite poor but improved slightly w use of Remeron but he's progressively getting weak and losing weight. He described regurgitation and coughing whenever he swallows foods, sometimes feels pills getting stuck on throat. - Obtain video swallow eval to r/o aspiration - If possible crush meds or change to IV form. I changed Protonix PO to Pepcid 20mg IV BID. - May continue Remeron 15mg qHS; will consider Marinol. - Aspiration precaution, diet per ST - Defer EGD eval given recent NSTEMI and pneumonia. - I had a discussion w pt and family about alternative route of feeding, he does not want any NGT or PEG tube feeding. - Palliative care consulted; appreciate recs. Supervising Physician Co-Signing Physician Notes I have personally seen and examined the patient with KATHERINE Dejesus. Her note reflects my exam and findings. I agree with her impression and plan. Will await barium study but symptoms most c/w oropharyngeal dysphagia. No roll for endoscopy at this point. Stu Wallace M.D. History of Present Illness Reason for Consultation: GERD, dysphagia, FTT Requesting Physician: Dr. Faraz Gordillo Attending Physician: Dr. Stu Wallace. History of Present Illness Pt is a 88 y/o male seen today for GERD, dysphagia, and failure to thrive (FTT). He has hx of GIST s/p gastrectomy and previously treated w Gleevec, prostate cancer, recently admitted for NSTEMI, sepsis secondary to pneumonia. He's been getting progressively weak. Family reports appetite had always been low but son noticed that since I started him on Remeron earlier this year, his appetite is a bit improved. Pt however still has trouble swallowing pills and also having coughing when he swallows foods. He would bring up copious mucus/phlegm when coughing. He denies heartburn symptoms but does have regurgitations of foods he swallows. He denies any nausea, abd pain, bowel habit changes. He was seen by Speech Therapy yesterday, recommended to have puree and nectar thick liquids. This morning he told me was able to swallow pudding like foods. Last CT abd/pelvis obtained 06/2018: 1. Mild small bowel enteritis. 2. Nonobstructive bowel pattern. 3. Mild rectal wall thickening considered chronic. 4. Prostate enlargement. Allergies Allergy/AdvReac Type Severity Reaction Status Date / Time No Known Allergies Allergy Unknown Verified 10/07/18 16:40 Home Medications Home Medications Medication Instructions Recorded Confirmed Type multivitamin 1 tab PO DAILY 03/18/18 10/07/18 History omeprazole 20 mg PO DAILY 03/18/18 10/07/18 History mirtazapine 15 mg PO QPM 09/28/18 10/07/18 History lisinopril [Zestril] 5 mg PO DAILY 30 Days #30 tab 10/03/18 10/07/18 Rx metoprolol succinate 25 mg PO QAM 30 Days #30 tab 10/03/18 10/07/18 Rx albuterol sulfate 3 ml CONTINUOUS NEBULIZATION Q4H 10/07/18 10/07/18 History PRN benzonatate 100 mg PO TID 10/07/18 10/07/18 History calcium carbonate [Calcium 500] 500 mg PO UD 10/07/18 10/07/18 History ondansetron HCl 4 mg PO UD PRN 10/07/18 10/07/18 History Patient History Medical History Severe protein-calorie malnutrition (Chronic) NSTEMI (non-ST elevated myocardial infarction) (Resolved) Prostate cancer (Resolved) 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 Chronic anemia (Chronic) Pernicious anemia (Chronic) Right acoustic neuroma (Chronic) BPH (benign prostatic hyperplasia) (Chronic) 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) CAD (coronary artery disease) (Chronic) Dyslipidemia (Chronic) HTN (hypertension) (Chronic) Family History Brother Lung cancer Brother Colorectal cancer Father Hypertension Social History Preferred Language: Divehi Communication Ability: Effective 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 Beliefs That Will Affect Care: None marital status: Current Living Situation: Spouse Feels Safe at Home: Yes Safety Concerns: Feels Safe At This Time Smoking Status: Never smoker Do You Dip or Chew Tobacco: No Hx Alcohol Use: No Hx Substance Use: No Review of Systems Review of Systems: All systems reviewed & are unremarkable except as noted in HPI & below Gastrointestinal: as per Subjective / HPI Physical Exam Constitutional: + thin, well groomed, cooperative and comfortable Eyes: PERRL, conjunctivae normal, anicteric sclerae ENMT: external ear and nose normal, oropharynx normal Respiratory: no respiratory distress and does not use accessory muscles Auscultation: + diminished lung sounds Cardiovascular: RRR, no murmur, no edema Gastrointestinal (Abdomen): normal bowel sounds, soft, nontender, no hepatosplenomegaly Skin: no rashes, warm and dry no jaundice Neurologic: Motor/Sensory: no asterixis Psychiatric: A+Ox3, euthymic affect Lymphatic: no lymphedema Results & Data Vital Signs (Past 12 Hours) Vital Signs Temp Pulse Resp BP Pulse Ox 10/09/18 07:50 36.2 C L 71 16 150/70 H 91 Laboratory Results Laboratory Results - last 72 hr 10/07/18 10/07/18 10/07/18 16:02 16:02 16:02 WBC 15.45 H RBC 3.46 L Hgb 11.7 L Hct 34.6 L MCV 100.0 MCH 33.8 MCHC 33.8 RDW Std Deviation 60.9 H RDW Coeff of Jose 17.3 H Plt Count 291 MPV 10.1 Immature Gran % (Auto) 0.5 Neut % (Auto) 89.0 Lymph % (Auto) 5.2 [place] % (Auto) 5.2 Eos % (Auto) 0.0 Baso % (Auto) 0.1 Immature Gran # (Auto) 0.08 H Neut # (Auto) 13.75 H Lymph # (Auto) 0.80 L [place] # (Auto) 0.81 H Eos # (Auto) 0.00 Baso # (Auto) 0.01 Absolute Nucleated RBC 0.04 H Nucleated RBC % (auto) 0.3 PT 13.0 H INR 1.3 H Sodium 144 Potassium 4.5 Chloride 108 H Carbon Dioxide 29 Anion Gap 7.0 BUN 68 H Creatinine 1.92 H Est Cr Clr Drug Dosing Not Reportable Est GFR ( Amer) 35.2 Est GFR (Non-Af Amer) 30.4 BUN/Creatinine Ratio 35.7 H Glucose 78 Calcium 9.2 Magnesium 2.9 H Total Bilirubin 1.0 AST 39 H ALT 16 Alkaline Phosphatase 55 Troponin I 1.320 H* Total Protein 7.0 Albumin 3.1 L Globulin 3.9 Albumin/Globulin Ratio 0.8 L TSH 1.110 Specimen Hemolysis Urine Color Urine Appearance Urine pH Ur Specific [place] Urine Protein Urine Glucose (UA) Urine Ketones Urine Blood Urine Nitrite Urine Bilirubin Urine Urobilinogen Ur Leukocyte Esterase Urine WBC (Auto) Urine RBC (Auto) U Hyaline Cast (Auto) U Epithel Cells (Auto) Urine Bacteria (Auto) Random Vancomycin 10/07/18 10/07/18 10/08/18 21:30 22:02 04:30 WBC RBC Hgb Hct MCV MCH MCHC RDW Std Deviation RDW Coeff of Jose Plt Count MPV Immature Gran % (Auto) Neut % (Auto) Lymph % (Auto) [place] % (Auto) Eos % (Auto) Baso % (Auto) Immature Gran # (Auto) Neut # (Auto) Lymph # (Auto) [place] # (Auto) Eos # (Auto) Baso # (Auto) Absolute Nucleated RBC Nucleated RBC % (auto) PT INR Sodium 144 Potassium 3.9 Chloride 110 H Carbon Dioxide 29 Anion Gap 5.0 BUN 53 H Creatinine 1.72 H Est Cr Clr Drug Dosing 16.9 Est GFR ( Amer) 40.2 Est GFR (Non-Af Amer) 34.7 BUN/Creatinine Ratio 31.1 H Glucose 92 Calcium 8.5 Magnesium Total Bilirubin AST ALT Alkaline Phosphatase Troponin I 1.470 H* 1.340 H* Total Protein Albumin Globulin Albumin/Globulin Ratio TSH Specimen Hemolysis Urine Color Yellow Urine Appearance Clear Urine pH 5.0 Ur Specific [place] 1.025 Urine Protein Trace H Urine Glucose (UA) Negative Urine Ketones 1+ H Urine Blood Negative Urine Nitrite Negative Urine Bilirubin Negative Urine Urobilinogen Negative Ur Leukocyte Esterase Negative Urine WBC (Auto) 1-5 Urine RBC (Auto) 5-10 H U Hyaline Cast (Auto) 1-5 U Epithel Cells (Auto) 10-20 H Urine Bacteria (Auto) Negative Random Vancomycin 10/08/18 10/08/18 10/09/18 04:30 04:30 05:14 WBC 13.26 H RBC 3.30 L Hgb 11.2 L Hct 33.5 L MCV 101.5 H MCH 33.9 MCHC 33.4 RDW Std Deviation 62.3 H RDW Coeff of Jose 17.3 H Plt Count 267 MPV 10.3 Immature Gran % (Auto) Neut % (Auto) Lymph % (Auto) [place] % (Auto) Eos % (Auto) Baso % (Auto) Immature Gran # (Auto) Neut # (Auto) Lymph # (Auto) [place] # (Auto) Eos # (Auto) Baso # (Auto) Absolute Nucleated RBC Nucleated RBC % (auto) PT INR Sodium Potassium Chloride Carbon Dioxide Anion Gap BUN Creatinine Est Cr Clr Drug Dosing Est GFR ( Amer) Est GFR (Non-Af Amer) BUN/Creatinine Ratio Glucose Calcium Magnesium Total Bilirubin AST ALT Alkaline Phosphatase Troponin I Total Protein Albumin Globulin Albumin/Globulin Ratio TSH Specimen Hemolysis Urine Color Urine Appearance Urine pH Ur Specific [place] Urine Protein Urine Glucose (UA) Urine Ketones Urine Blood Urine Nitrite Urine Bilirubin Urine Urobilinogen Ur Leukocyte Esterase Urine WBC (Auto) Urine RBC (Auto) U Hyaline Cast (Auto) U Epithel Cells (Auto) Urine Bacteria (Auto) Random Vancomycin 15.4 11.6 10/09/18 10/09/18 05:14 05:14 WBC 11.96 H RBC 3.13 L Hgb 10.7 L Hct 31.8 L MCV 101.6 H MCH 34.2 H MCHC 33.6 RDW Std Deviation 63.1 H RDW Coeff of Jose 17.4 H Plt Count 278 MPV 11.1 H Immature Gran % (Auto) Neut % (Auto) Lymph % (Auto) [place] % (Auto) Eos % (Auto) Baso % (Auto) Immature Gran # (Auto) Neut # (Auto) Lymph # (Auto) [place] # (Auto) Eos # (Auto) Baso # (Auto) Absolute Nucleated RBC Nucleated RBC % (auto) PT INR Sodium 144 Potassium 4.3 Chloride 109 H Carbon Dioxide 28 Anion Gap 7.0 BUN 45 H Creatinine 1.35 D Est Cr Clr Drug Dosing 21.2 Est GFR ( Amer) 53.9 Est GFR (Non-Af Amer) 46.5 BUN/Creatinine Ratio 33.2 H Glucose 81 Calcium 8.7 Magnesium Total Bilirubin AST ALT Alkaline Phosphatase Troponin I Total Protein Albumin Globulin Albumin/Globulin Ratio TSH Specimen Hemolysis Urine Color Urine Appearance Urine pH Ur Specific [place] Urine Protein Urine Glucose (UA) Urine Ketones Urine Blood Urine Nitrite Urine Bilirubin Urine Urobilinogen Ur Leukocyte Esterase Urine WBC (Auto) Urine RBC (Auto) U Hyaline Cast (Auto) U Epithel Cells (Auto) Urine Bacteria (Auto) Random Vancomycin
--- NOTE | 2018-10-09 12:01 | XRay Report ---
XR KUB/Abdomen 1 view CLINICAL HISTORY: eval for constipation COMPARISON STUDY: No previous studies for comparison. FINDINGS: There is scattered stool within the colon. There is a speckled bowel gas pattern within the left upper quadrant which may represent a distended stomach filled with food products. This could in dicate gastric outlet obstruction, motility disorder or bezoar. There is also probable debris present within distal esophagus/hiatal hernia. Additional workup/imaging is recommended. IMPRESSION: 1. Left upper quadrant speckled bowel gas pattern which may represent a distended stomach filled with debris. This could indicate gastric outlet obstruction, motility disorder or bezoar. Clinical correl ation and follow-up is recommended. Electronically signed by: Jamie Martel M.D. 10/09/2018 11:59 AM
--- NOTE | 2018-10-09 12:25 | Cardiology Progress Note ---
Date of Service October 09, 2018 Assessment & Plan (1) NSTEMI (non-ST elevated myocardial infarction): (2) Hospital acquired PNA: Suspected aspiration with recurrent ongoing pneumonia. Superimposed non-STEMI noted last hospitalization. Aspirin on hold given patient's history of gastrointestinal stromal tumor. Await swallowing eval regarding administration of medications. Despite his LV systolic dysfunction, we need to transition to metoprolol tartrate as it can be crushed and given with thick liquids. Subjective Chief complaint: Follow-up, coronary heart disease Subjective: Patient more conversant today. His spouse and his son are at the bedside. Telemetry reveals stable sinus rhythm with previously documented conduction delay. He is he feels he is having difficulty swallowing pills, GI has seen him and a swallowing study is tentatively planned. Physical Exam Constitutional: + ill appearing (Chronically ill in appearance) and + cachectic Respiratory: Coarse breath sounds the bases, no respiratory distress at rest, no rhonchi no wheezing Cardiovascular: Rate/Rhythm: regular rate Heart Sounds: no murmur Vessels: no JVD Extremities: no edema Gastrointestinal (Abdomen): Healed incisions from prior abdominal surgery, nontender Neurologic: moves all extremities and + focal motor deficit Conversant Results & Data Vital Signs (Past 12 Hours) Vital Signs Temp Pulse Resp BP Pulse Ox 10/09/18 07:50 36.2 C L 71 16 150/70 H 91
--- NOTE | 2018-10-09 12:29 | Fluoroscopy Report ---
FL video swallow CLINICAL HISTORY: dysphagia, eval for aspiration COMPARISON STUDY: None. FLUOROSCOPY TIME: 2.6 minutes. FINDINGS: Premature spillage was noted with diminished epiglottic inversion. Several episodes of trac heal aspiration were noted with thin liquids and nectar thick liquids. A small amount of tracheal asp iration was also noted with pudding consistencies. Significant residuals were noted. IMPRESSION: 1. Abnormal swallowing mechanism with tracheal aspiration with thin liquids, nectar thick liquids and pudding consistencies. 2. Diminished epiglottic inversion. 3. Full recommendations by speech pathology to follow. Electronically signed by: Nico Rosa M.D. 10/09/2018 12:27 PM
[2018-10-09] MEDS: FAMOTIDINE 20 MG in SYRINGE 3 ML IV SCH ×2 (12:32→20:37)
--- NOTE | 2018-10-09 13:40 | Palliative Care Consultation ---
Date of Consultation October 09, 2018 Assessment & Plan (1) Palliative care encounter: This is an 88 year old male who presented to the hospital from home with increased weakness and dysphagia. The patient has recently been discharged on 10/03 for aspiration PNA and weakness/FTT. Patient was arranged to see Home Health through [facility], the [place], and [facility]. Per the patients family, the patient was doing ok for the first two days at home and even was ambulating with his walker; however, became increasingly fatigued and weak. The patient has been consistently coughing with increased phlegm production and dysphagia with eating; even liquids. On admission, his troponin was elevated at 1.32. Cardiology was consulted and conservative measures recommended. -I initially met with patient, patients , patients son, John, and on a separate occasion, patient's daughter, Lottie. -In conversation, the patient has a basic understanding about what his acute illness entails; however, has a poor understanding for big picture discussion items; therefore, I explained that he would need the help of his family members for usp discussions. -Both patients son and daughter share medical POA and I met with them both separately, and with their mother present to discuss goals of care. -They both agree that Dad does not have the reserve to thrive and do not feel any aggressive interventions would be benefiting at this time. They have stated that they would like to proceed with hospice and suggested [facility] per recommendations from friends of the family. -Lottie did mention that she has concerns about her mother when Dad dies at home and wants to talk with her Mom this evening 1:1 about that before 100% committing to home hospice. Case management aware that they are considering Home Hospice vs [facility] (SNF). A referral has been placed for [facility] and CM will follow up tomorrow AM. -A POLST form was completed and signed by DAY Tafoya indicating DNR, no artificial feeding tubes or hydration, comfort measures only once discharged, and a trial of antibiotics. -The patients was tearful during our discussion and actually needed to step out because she could not talk about it anymore. She said "I know he's going to , but I don't think I am ready, we have been 66 years" -When discussing care for the patient while at home, the patient's son, John does live upstairs in a 1 bedroom apartment and is available when needed as he does not work. -PPS 30%. (2) Failure to thrive: -Patient with significant cachexia and dysphagia with FTT -Megace likely not appropriate, especially is transitioning to Hospice. -Possibly could benefit from Marinol trial (3) Dysphagia: -Swallow study performed today -No additional interventions recommended as family transitioning to hospice care -Increased weakness and inevitable recurrent aspirations expected (4) Malignant GIST (gastrointestinal stromal tumor): Supervising Physician Co-Signing Physician Notes Late entry for exam done on 10/09 Pt seen and examined, sitting up in chair at bedside, no family present. PE: NAD HEENT: EOMI Resp: coarse BS, unlabored CV: RR Abd: soft, NT Neuro: A&O Agree with above note, assessment and plan - will collaborate with CM for transfer home with Hospice care. History of Present Illness Reason for Consultation: goals of care Requesting Physician: Dr. Gordillo Attending Physician: Faraz Gordillo, History of Present Illness This is an 88 year old male who presented to the hospital from home with increased weakness and dysphagia. The patient has recently been discharged on 10/03 for aspiration PNA and weakness/FTT. Patient was arranged to see Home Health through [facility], the [place], and [facility]. Per the patients family, the patient was doing ok for the first two days at home and even was ambulating with his walker; however, became increasingly fatigued and weak. The patient has been consistently coughing with increased phlegm production and dysphagia with eating; even liquids. On admission, his troponin was elevated at 1.32. Cardiology was consulted and conservative measures recommended. Palliative Care was consulted to discuss Goals of Care. Thank you kindly for involving Palliative Care. We will follow to assist further with decision making. Allergies Allergy/AdvReac Type Severity Reaction Status Date / Time No Known Allergies Allergy Unknown Verified 10/07/18 16:40 Home Medications Home Medications Medication Instructions Recorded Confirmed Type omeprazole 20 mg PO DAILY 03/18/18 10/07/18 History mirtazapine 15 mg PO QPM 09/28/18 10/07/18 History metoprolol succinate 25 mg PO QAM 30 Days #30 tab 10/03/18 10/07/18 Rx albuterol sulfate 3 ml CONTINUOUS NEBULIZATION Q4H 10/07/18 10/07/18 History PRN ondansetron HCl 4 mg PO UD PRN 10/07/18 10/07/18 History amoxicillin-pot clavulanate 10 ml PO TID 7 Days #210 ml 10/10/18 Rx [Augmentin] Patient History Medical History Severe protein-calorie malnutrition (Chronic) NSTEMI (non-ST elevated myocardial infarction) (Resolved) Prostate cancer (Resolved) 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 Chronic anemia (Chronic) Pernicious anemia (Chronic) Right acoustic neuroma (Chronic) BPH (benign prostatic hyperplasia) (Chronic) 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) CAD (coronary artery disease) (Chronic) Dyslipidemia (Chronic) HTN (hypertension) (Chronic) Family History Brother Lung cancer Brother Colorectal cancer Father Hypertension Social History Preferred Language: Bengali Communication Ability: Effective Trapper Animal Required: No Beliefs That Will Affect Care: None marital status: Current Living Situation: Spouse Feels Safe at Home: Yes Safety Concerns: Feels Safe At This Time Smoking Status: Never smoker Do You Dip or Chew Tobacco: No Hx Alcohol Use: No Hx Substance Use: No Review of Systems Review of Systems: General: Patient denies pain generally and denies at pleur- x site HEENT: Pt denies [place], dizziness, visual changes. Patient does express difficulty with swallowing CV: Pt denies chest pain, palpitations Resp: Pt denies SOB GI: Patient denies abdominal pain, N/V/D : Patient denies urinary discomfort Skin: patient denies skin changes Physical Exam Physical Exam: General: Patient lying in his bed, awake. Pt generally ill appearing and severely cachectic HEENT: head normocephalic, atraumatic, no nasal drainage noted. moist mucus membranes CV: RRR, S1/S2, (-) rub, murmur, edema. decreased skin turger. Respiratory: Coarse throughout. On 2 LNC, no wheezing or BRANCH GI: S/NT/ND, Ax4 bowel sounds Skin: frail Psych: Patient awake, alert and oriented. patient able to answer questions appropriately, but does not have full understanding of complexity of medical details Results & Data Vital Signs (Past 12 Hours) Vital Signs Temp Pulse Resp BP Pulse Ox 10/09/18 07:50 36.2 C L 71 16 150/70 H 91 Time Spent Midlevel Total time spent 100 minutes with > 50% of that time spent reviewing the chart, assessing the patient, dsicussing goals of care, completing a POLST form and discussing POC with IDT.
[2018-10-09] MEDS: MIRTAZAPINE TAB 15 MG TAB PO SCH (20:35)
[2018-10-10] MEDS: PIPERACILLIN/TAZOBACTAM 3.375 GM in DEXTROSE 5% 100 ML IV SCH (01:13)
[2018-10-10 07:11] LABS: Hematocrit (blood only) 34.6 % (42-52); Hemoglobin 11.2 g/dL (14.0-18.0); Mean Corpuscular Hgb Conc 32.4 g/dL (32-36); Mean Corpuscular Volume 102.7 fL (80-100); Mean Platelet Volume 10.8 fL (7.4-10.4); Platelet Count 339 K/uL (130-400); RDW Coefficient of Variation 17.2 % (11.5-14.5); RDW Standard Deviation 62.7 fL (36.4-46.3); Red Blood Count 3.37 M/uL (4.7-6.1); White Blood Count 13.03 K/uL (4.8-10.8)
[2018-10-10] MEDS: BENZONATATE 100 MG CAPSULE PO SCH (07:33)
[2018-10-10] MEDS: FAMOTIDINE 20 MG in SYRINGE 3 ML IV SCH (07:36)
[2018-10-10] MEDS: METOPROLOL SUCC 25MG EXT REL TAB PO SCH (07:36)
[2018-10-10] MEDS: MULTIVITAMIN TAB PO SCH (07:37)
[2018-10-10 07:50] LABS: Calcium 8.8 mg/dl (8.5-10.1); Creatinine Clr Calc Pharmacy 21.7 ml/min; Est GFR (African American) 55.4; Est GFR (Non-African American) 47.8; Potassium 3.3 mmol/L (3.5-5.1)
--- NOTE | 2018-10-10 10:26 | History & Physical Bridge Note ---
Date of Service October 10, 2018 History & Physical Bridge Note KUB and Video Swallow study results reviewed. Pt's aspirating with thin, nectar thick and pudding consistencies. He and family have decided to go home on home hospice. Reviewed results w pt. He will continue PO intake aware of risks of aspiration. GI to sign off.
--- NOTE | 2018-10-10 10:28 | Discharge Summary ---
Date of Service October 10, 2018 Admission HPI Per Admitting Provider This is an 88yo M with a PMH of recent NSTEMI, anemia, h/o GIST and prostate cancer and other medical problems listed below who presents from home with generalized weakness and difficulty swallowing. Patient was recently admitted to our service in September for sepsis 2/2 PNA as well as failure to thrive. During admission, was also found to have an NSTEMI and IV heparin was given. Was seen by cardiology service and no invasive intervention was recommended due to age and comorbidities. Was discharged home on 10/03 on a 10 day course of Augmentin and set up with services. Two days later, per daughter, patient began to look more fatigued and weak. He is able to ambulate with walker but only to the bathroom and back before he needs to rest. Has not been eating well at home and has difficulty swallowing, spitting most of the food back up. Can only tolerate foods like Romanian ice. Also continues to cough up phlegm. Denies any fever or chills. No chest pain or SOB. Family had a discussion with home health nurse about pursuing Hospice last night but no formal plans have been made. When patient continued to have difficulty eating today, his was brought back to ED for evaluation. Was initially hypoxic at 89% on room air and is now 93% on 2L. Does not require home O2. CXR with interval development of left basilar opacity which favors pneumonia. Troponin is elevated at 1.32. Cr is 1.92 (baseline 1.1). Was given a dose of Vanc, Zosyn and Azithromycin in the ED along with 2L NSS. Will be admitted for continued antibiotic therapy, telemetry monitoring and further discussion of care. Admission Exam Per Admitting Provider General Appearance: Elderly cachectic man with temporal wasting, chronically ill appearance Head: normocephalic, atraumatic Eyes: normal inspection, PERRL, EOMI ENT: hearing grossly normal, pharynx normal (dry mucous membranes) Neck: supple, no JVD, no adenopathy Respiratory/Chest: Left lung base with crackles, otherwise clear. No wheezes or rhonci. No respiratory distress or accessory muscle use Cardiovascular: regular rate, rhythm, no murmur, normal peripheral pulses Abdomen/GI: normal bowel sounds, soft, non-tender to palpation. R lower abdominal wall with non-tender small nodules (known) Extremities/Musculoskelatal: normal inspection, no calf tenderness, normal capillary refill, no pedal edema Neurologic/Psych: alert, normal mood/affect, oriented x 3 Skin: normal color, warm/dry Principal Diagnosis Aspiration Pneumonia Severe Dementia GERD Dysphagia DIOGENES FTT NSTEMI Prostate CA GIST Pernicious and Chronic Anemia CAD HLD HTN Discharge Data Allergies Allergy/AdvReac Type Severity Reaction Status Date / Time No Known Allergies Allergy Unknown Verified 10/07/18 16:40 Consultations 10/07/18 17:33 ED Decision to Admit Stat 10/07/18 20:09 Consult Case Management - Discharge Planning Routine Consult Palliative Care Routine 10/08/18 10:49 Consult Cardiology Routine 10/08/18 17:38 Consult Gastroenterology Routine 10/09/18 10:47 Consult Case Management - Discharge Planning Routine Ordered Studies 10/09/18 11:45 FL video swallow Routine Hospital Course (1) Acute respiratory failure with hypoxia: (2) Hospital acquired PNA: This is an 88yo M with a PMH of recent NSTEMI, anemia, h/o GIST and prostate cancer and other medical problems listed below who presents from home with generalized weakness and difficulty swallowing and was found to have interval development of pneumonia, troponin elevation and DIOGENES. -Less cough. Denies any shortness of breath -Chest x-ray with interval development of left basilar opacity which favors pneumonia -Also likely that patient is aspirating due to worsening dysphasia -Continue antibiotic coverage with Zosyn and Vanco -Duo nebs -DC when WBCs are closer no normal, trending down nicely (3) Elevated troponin: H/o NSTEMI on previous admission -Maximize Medical Therapy Cards on case (4) DIOGENES (acute kidney injury): Likely prerenal in setting of poor p.o. intake -Gentle fluids, avoid nephrotoxic agents when able (5) Dysphagia: Increased difficulty swallowing since discharge home 2 days ago -Speech evaluation ordered GI to see (6) Pernicious anemia: Has been receiving B12 and procrit injections as an outpatient -Hgb at baseline (7) Severe protein-calorie malnutrition: Failure to thrive -Advance diet as tolerated DVT Ppx: SCDs Code status: DNR per discussion with family PCP: Joshua Dispo: DC telemetry. Discharge planning ordered. Palliative care consult placed. PT eval and treat ROS-No Headache, No Visual Changes, No Nausea, No Vomiting, No Fever, No Chills, No Neck Pain or Stiffness, No Chest Pain, No Palpitations, No SOB, No BRANCH, No Cough, No Sputum, No Wheezing, No Abdominal Pain, No Diarrhea, No Hematemesis, No Hemoptysis, No Unexpected Weight Loss, No Flank pain, No Melena, No Hematochezia, No Frequency, No Urgency, No Burning, No Hematuria, No Rashes, No Diaphoresis. Appetite is Normal, Feeling better Looks great today, Talkative. Physical Exam Gen-AAO x 3, NAD, Afebrile Head-NCAT, EOMI, PERRLA, Anicteric Sclera, No Posterior Pharyngeal Erythema Neck-Supple, No JVD, No Thyromegaly, No Masses, No LAD, No Bruits Lungs-Clear to Auscultation Bilaterally, No Rales, No Rhonchi, No Wheezing, No Crepitus Chest-No S4, +S1, +S2, No S3, No Murmurs, No Rubs, No Gallops, No Ectopy Abdomen-Soft, Bowel Sounds Present, Non Tender, Non Distended, No Hepatomegaly, No Splenomegaly, No Palpable Masses, No Rebound, No Rigidity, No Guarding Musculoskeletal-Full Range of Motion Bilaterally, No CVAT Extremities-No Cyanosis, No Clubbing, No Edema Nuero-Cranial Nerves II-XII grossly intact, Motor WNL, DTRs WNL, Strength WNL, Non Focal Psych-Normal Mood Total Time Total Time Spent Total Time Spent (In Minutes): 45 mins Discharge Plan Discharge Items Patient Disposition: Hospice - Medical Facility Reason For Visit: WEAKNESS, PNEUMONIA Discharge Diagnosis: Aspiration Pneumonia Severe Dementia GERD Dysphagia DIOGENES FTT NSTEMI Prostate CA GIST Pernicious and Chronic Anemia CAD HLD HTN Condition: Fair Discharge Goals: Decrease discomfort Specific Goals: Home c Hospice or Inpatient Hospice Activity Comment: Severe Fall Risk Lifting: None Bathing Comment: Sponge Exercise/Sports: None Weightbearing Comment: WBAT c Assist Non-emergency contact: Primary Care Provider Call non-emergency contact if: you have any medication questions Follow-up/Referrals: Ramiro Lewis MD [Primary Care Provider] - (As directed, F/U with Hospice Medical Directed) Diet: Full liquid Diet Comment: Thickened Liquid or as tolerated Addtl Provider Instructions: Hospice Care, [facility] Prescriptions: New amoxicillin-pot clavulanate [Augmentin] 250-62.5 mg/5 mL suspension for reconstitution 10 ml PO TID 7 Days Qty: 210 RF: 0 Continued albuterol sulfate 2.5 mg /3 mL (0.083 %) solution for nebulization 3 ml continuous nebulization Q4H PRN (Reason: Shortness Of Breath Or Wheezing) RF: 0 ondansetron HCl 4 mg tablet 4 mg PO UD PRN (Reason: Nausea And Vomiting) RF: 0 omeprazole 20 mg Capsule,Delayed Release(Dr/Ec) 20 mg PO DAILY RF: 0 mirtazapine 15 mg tablet 15 mg PO QPM RF: 0 metoprolol succinate 25 mg Tablet Extended Release 24 Hr 25 mg PO QAM 30 Days Qty: 30 RF: 0 Discontinued benzonatate 100 mg capsule 100 mg PO TID RF: 0 calcium carbonate [Calcium 500] 500 mg calcium (1,250 mg) Tablet 500 mg PO UD RF: 0 multivitamin Tablet 1 tab PO DAILY RF: 0 lisinopril [Zestril] 5 mg Tablet 5 mg PO DAILY 30 Days Qty: 30 RF: 0 Stand-Alone Forms: [facility] Discharge Orders: Discharge Order (Routine); Ordered 10/10/18 Ordered By: Faraz Gordillo Admission Data Admit Date/Time: 10/07/18 18:23 Attending Provider: Faraz Gordillo Admit Provider: Genna Rg Primary Care Provider: Ramiro Lewis Other Providers: Genna Rg ; Lissy Granado ; Ronn Mar ; Alanna Gonzalez ; Quentin Kelly ; Mildred Montoya ; Calos Bell ; Vilma Vance ; Justino Kitchen ; Lexie Flores ; Aaron Nicholas ; Stu Wallace ; Marleny Tam ; Sena Baker ; Norma Sofia ; Amelia Chaudhary ; Ana María Santacruz Service: Medical
--- NOTE | 2018-10-14 04:50 | Coding Query ---
CODING QUERY To promote full compliance with coding requirements relating to patient care, provider participation is requested in all cases of trichologist uncertainty. Please assist us with the question(s) below: Coding Question(s): Progress notes /Discharge Summary document both Community Acquired Pneumonia and Aspiration Pneumonia. Please check below the diagnosis you were treating. Thank you ! HAILEY Koenig [facility] Physician's Response(s): Community Acquired Pneumonia ___XXX____ Aspiration Pneumonia Cannot Clinically Correlate if CAP or Aspiration Pneumonia was treated Other , Please document: Principal Diagnosis: "that condition established after study, to be chiefly responsible for occasioning the admission of the patient to the hospital for care." Co-Existing Principal Diagnosis: "when two or more diagnoses equally meet the criteria for principal diagnosis as determined by the circumstances of admission, diagnostic work up, and/or therapy provided, and the Alphabetic Index, Tabular List, or another coding guideline does not provide sequencing direction, any one of the diagnoses may be sequenced first." "When the physician has documented what appears to be a current diagnosis in the body of the record, but has not included the diagnosis in the final diagnostic statement, the physician should be asked whether the diagnosis should be added." (Source Coding Clinic 2 QTR90. p3-4) NAS
== END 2018-10-10 14:00 | disposition hospice, home (50) | DRG 871 ==
LOC: ED 15:46 → 2N 18:23